=== PATIENT | male | born 1945 | race Caucasian/White ===

== ENCOUNTER → 2021-08-06 11:43 | Outpatient (CLI) | payer MEDICARE, SELFPAY | PROVIDERS: PCP Nurse Practitioner Family; Visit Provider Nurse Practitioner | DX: U07.1 COVID-19 (principal) | CPT/HCPCS: C9803; U0003; U0005 ==

== ENCOUNTER 2021-08-17 11:43 | Emergency (ER) | payer MEDICARE, SELFPAY ==
--- NOTE | 2021-08-17 12:38 | HMH.EDUTC ---
[facility] [place] Disposition Clinical Impression: UTI (urinary tract infection) Qualifiers: Urinary tract infection type: site unspecified Hematuria presence: with hematuria Qualified Code(s): N39.0 - Urinary tract infection, site not specified Disposition: Home, Self-Care Condition on Discharge: Good Instructions: Urinary Tract Infection, DI for Urinary Tract Infection (UTI) Additional Instructions: Drink plenty of fluids. Water would be the best thing to drink. Drinking at least a glass of real cranberry juice per day would also help. Take tylenol or ibuprofen for pain or fever. Take the medications as directed. Follow up with your regular doctor. Make sure you follow up. You should also follow up once your are finished with the antibiotics to get your urine rechecked to make sure the infection is completely gone. GO TO THE ER FOR ANY WORSENING SYMPTOMS Prescriptions: Ondansetron [Zofran 4mg ODT] 4 mg PO Q8HP PRN #20 tab PRN Reason: Nausea [facility] Ciprofloxacin HCl [Cipro 500mg Tab] 500 mg PO BID 10 Days #20 tab Transmission Status: Pending to [facility] Referrals: August Weaver MD [Primary Care Provider] - Time of Disposition: 13:22 Medical Decision Making - Medical Records Medical records reviewed: No: I reviewed the patient's medical records. - Fred Inquiry Pt receiving controlled substance: No Vital Signs: 08/17/21 12:44 08/17/21 13:02 Temperature 97.4 F L 97.4 F L Temperature Source Temporal Artery Scan Pulse Rate 109 H Pulse Rate [Left] 109 H Respiratory Rate 16 16 Blood Pressure 163/99 H Blood Pressure [Right Arm] 163/99 H Blood Pressure Mean [Right Arm] 120 02 Sat by Pulse Oximetry 96 - Lab Data Lab results reviewed: Yes: I reviewed the patient's lab results. Lab Results 08/17/21 12:56: Urine Color [place], Urine Appearance Clear, Urine pH 5.0, Ur Specific Strang < 1.005 L, Urine Protein 1+, Urine Glucose (UA) Trace, Urine Ketones Trace, Urine Blood Negative, Urine Nitrate Positive A, Urine Bilirubin Negative, Urine Urobilinogen 2, Ur Leukocyte Esterase 3+ A Orders (Tests/Meds): ORDERS Category Date Time Status Urine Culture Stat Micro 08/17/21 12:[address] [facility] [place] HPI - General Stated complaint: painful urination, trouble urinating Time Seen by Provider: 08/17/21 12:38 - History of Present Illness Provider Complaint: He states that he has had progressively worsening urinary frequency and dysuria for the past 3 days. This morning his symptoms worsened more, so he came here to be checked for a UTI. He has a history of kidney stones, but he denies any significant pain at this time. He denies any fever or chills. - Related Data Previous Rx's Medication Instructions Recorded Ciprofloxacin HCl [Cipro 500mg 500 mg PO BID 10 Days #20 tab 08/17/21 Tab] Ondansetron [Zofran 4mg ODT] 4 mg PO Q8HP PRN #20 tab 08/17/21 Allergies Allergy/AdvReac Type Severity Reaction Status Date / Time From Penicillin G Sodium Allergy Unknown Uncoded 07/21/17 14:28 PCN (penicillin) Allergy Unknown Uncoded 07/21/17 14:28 Penicillin Allergy Unknown Uncoded 07/21/17 14:28 [facility] History - Hepatitis A Screen Attestation statement:: This patient has been screened for Hepatitis A risk factors. I have reviewed the patient's past medical history: Yes ROS Obtained: Yes All systems reviewed & no additional complaints - Constitutional Constitutional: Reports as per HPI - Eyes Eyes: Denies eye discharge - ENT Ears, Nose, Mouth, and Throat: Denies dizziness, Denies otalgia, Denies sore throat, Denies vertigo/dizziness - Cardiovascular Cardiovascular: Denies chest pain - Respiratory Respiratory: Denies chest congestion, Denies cough, Denies dyspnea, Denies stridor, Denies wheezing - Gastrointestinal Gastrointestingal: Reports: nausea. Denies: abdominal pain, diarrhea, vomiting -
[2021-08-17 12:44] VITALS: BP 163/99; PULSE 109; RESP 16; TEMP 36.3; O2SAT 96; BMI 25.1
[2021-08-17 12:58] LABS: Color,Urine Orange (Yellow)
[2021-08-17 13:00] LABS: Apearance,Urine Clear (Clear); Protein,Urine 1+ (Negative); Specific Gravity, Urine < 1.005 (1.005-1.030)
[2021-08-17 13:01] LABS: Bilirubin,Urine Negative (Negative); Blood, Urine Negative (Negative); Glucose,Urine (UA) Trace (Negative); Ketones,Urine TRACE (Negative); UTC Leukocyte Esterase,Urine 3+ (Negative); UTC Nitrate,Urine Positive (Negative); Urobilinogen,Urine 2 EU/dl (0.2)
[2021-08-17 13:02] VITALS: BP 163/99; PULSE 109; RESP 16; TEMP 36.3
== END 2021-08-17 13:53 | disposition home or self-care (01) ==
PROVIDERS: Emergency Provider Nurse Practitioner Family; PCP Family Medicine
DX: N30.00 Acute cystitis without hematuria (principal); Z88.0 Allergy status to penicillin
CPT/HCPCS: G0463; 81003; 87086; 99202

== ENCOUNTER 2021-08-22 13:15 | Emergency (ER) | payer MEDICARE, SELFPAY ==
[2021-08-22 15:13] VITALS: BP 154/84; PULSE 81; RESP 16; TEMP 36.6; O2SAT 100; BMI 24.3
--- NOTE | 2021-08-22 15:42 | HMH.EDUTC ---
[facility] [place] Clinical Impression: UTI (urinary tract infection) Qualifiers: Urinary tract infection type: site unspecified Hematuria presence: with hematuria Qualified Code(s): N39.0 - Urinary tract infection, site not specified; R31.9 - Hematuria, unspecified Adverse reaction to antithrombotic medication Qualifiers: Encounter type: initial encounter Qualified Code(s): T45.525A - Adverse effect of antithrombotic drugs, initial encounter Disposition: Home, Self-Care Condition on Discharge: Good Instructions: DI for Urinary Tract Infection (UTI) Additional Instructions: Drink plenty of fluids. Take tylenol or ibuprofen for pain or fever. Stop the ciprofloxacin and start the bactrim (sulfamethazole). Take the medications as directed. Follow up with your regular doctor. GO TO THE ER FOR ANY WORSENING SYMPTOMS Prescriptions: Sulfamethoxazole/Trimethoprim [Bactrim DS tablet] 1 each PO BID 7 Days #14 tab Transmission Status: Pending to [facility] Referrals: August Weaver MD [Primary Care Provider] - Time of Disposition: 15:59 Medical Decision Making - Medical Records Medical records reviewed: No: I reviewed the patient's medical records. - Fred Inquiry Pt receiving controlled substance: No Vital Signs: 08/22/21 15:13 Temperature 97.9 F Temperature Source Oral Pulse Rate [Left] 81 Respiratory Rate 16 Blood Pressure [Right Arm] 154/84 H Blood Pressure Mean [Right Arm] 107 02 Sat by Pulse Oximetry 100 [facility] [place] - General Stated complaint: stomach pain Time Seen by Provider: 08/22/21 15:42 Mode of Arrival: Ambulatory Source of Information: Patient Limitations: No Limitations Description of Symptoms (Recalled from Triage Doc. by RN): PT WAS TREATED HERE ON 04/18 FOR A UTI. AFTER STARTING THE ZOFRAN AND CIPRO PT DEVELOPED WORSE SYMPTOMS. PT STATES HE IS UNABLE TO EAT/DRINK, ABD IS TENDER AND DISTENDED, AND N/V. HEENT Symptoms (Recalled from RN notes): No Resp Symptoms (Recalled from RN notes): No Skin Symptoms (Recalled from RN notes): No MS Symptoms (Recalled from RN notes): No Functional Status (Recalled from RN notes): WNL - History of Present Illness Provider Complaint: He was here 4 days ago with symptoms of a probable uti. He was started on cipro. He states that after starting that, his uti symptoms began to bet better, but he began to have GI upset. He has vomited after taking the cipro twice 2 days ago and then he vomited after taking it yesterday also. He has stopped the cipro and his GI issues are feeling better, but he is worried that he needs to be on an antibotic for the UTI symptoms that he was having. - Related Data Previous Rx's Medication Instructions Recorded Ciprofloxacin HCl [Cipro 500mg 500 mg PO BID 10 Days #20 tab 08/17/21 Tab] Ondansetron [Zofran 4mg ODT] 4 mg PO Q8HP PRN #20 tab 08/17/21 Sulfamethoxazole/Trimethoprim 1 each PO BID 7 Days #14 tab 08/22/21 [Bactrim DS tablet] Allergies Allergy/AdvReac Type Severity Reaction Status Date / Time From Penicillin G Sodium Allergy Unknown Uncoded 07/21/17 14:28 PCN (penicillin) Allergy Unknown Uncoded 07/21/17 14:28 Penicillin Allergy Unknown Uncoded 07/21/17 14:28 - Worker's Comp Is this a Worker's Comp case?: No [facility] History - Hepatitis A Screen Drug use history?: No High risk sexual behaviors?: No History of sexually transmitted infection?: No Currently employed?: No Childcare worker?: No Do you have indoor plumbing?: Yes Do you have electricity?: Yes Attestation statement:: This patient has been screened for Hepatitis A risk factors. I have reviewed the patient's past medical history: Yes ROS Obtained: Yes All systems reviewed & no additional complaints - Constitutional Constitutional: Reports as per HPI - Eyes Eyes: Denies eye discharge - ENT Ears, Nose, Mouth, and Throat: Denies dizziness, Denies otalgia, Denies sore throat, Denies throat swelling -
[2021-08-22 16:08] VITALS: BP 154/84; PULSE 81; RESP 16; TEMP 36.6
== END 2021-08-22 16:13 | disposition home or self-care (01) ==
PROVIDERS: Emergency Provider Nurse Practitioner Family; PCP Family Medicine
DX: N30.01 Acute cystitis with hematuria (principal); T36.8X5A Adverse effect of other systemic antibiotics, initial encounter; Z88.0 Allergy status to penicillin
CPT/HCPCS: G0463; 99202

== ENCOUNTER 2021-08-27 22:35 | Observation (INO) | payer MEDICARE, SELFPAY ==
[2021-08-27 22:38] VITALS: BMI 25.1
[2021-08-27 22:49] VITALS: BP 110/67; PULSE 66; RESP 20; TEMP 36.9; O2SAT 97; BMI 25.8
[2021-08-27 23:00] VITALS: BP 170/76; PULSE 64; O2SAT 98
--- NOTE | 2021-08-27 23:02 | CT_ITS ---
PROCEDURE INFORMATION: Exam: CT Abdomen And Pelvis Without Contrast Exam date and time: 08/27/2021 11:02 PM Age: 76 years old Clinical indication: Abdominal pain; Generalized; Additional info: Abdominal pain x2 weeks TECHNIQUE: Imaging protocol: Computed tomography of the abdomen and pelvis without contrast. Radiation optimization: All CT scans at this facility use at least one of these dose optimization techniques: automated exposure control; mA and/or kV adjustment per patient size (includes targeted exams where dose is matched to clinical indication); or iterative reconstruction. COMPARISON: No relevant prior studies available. FINDINGS: Lungs: No mass/infiltrate at either lung base. Moderate to large left basilar pleural effusion identified. Liver: The liver is normal in size and attenuation. No intrahepatic biliary dilitation. Gallbladder and bile ducts: Normal. No calcified stones. No ductal dilation. Gallbladder wall thickness is normal. Pancreas: Normal. No ductal dilation. Spleen: Normal. No splenomegaly. Adrenal glands: Normal. No mass. Kidneys and ureters: Moderate bilateral hydronephrosis with moderate bilateral hydroureter. There is infiltration of fat within each perinephric space. This is likely on the basis of forniceal extravasation of urine due to bilateral obstructive uropathy. Mild thickening of left Gerota's fascia. No evidence of obstructing calculus bilaterally. Stomach and bowel: There is diverticulosis within portions of the colon without evidence of diverticulitis.No obstruction. No mucosal thickening. Small bowel mesentery is normal. Appendix: Unremarkable. Intraperitoneal space: Unremarkable. No free air. No significant fluid collection. Vasculature: Arterial atheromatous calcifications are noted. No abdominal aortic aneurysm. Lymph nodes: Unremarkable. No enlarged lymph nodes. Urinary bladder: Prominent bladder distention. The bladder measures 17.1 x 9.6 x 9.2 cm. Estimated current bladder volume is 790 mL. No evidence of mural thickening of the lateral wall. No evidence of focal mass. Reproductive: Prostatic enlargement. The bladder measures 5.7 x 6.0 x 5.8 cm with estimated volume of 103 mL, (normal is 40 mL or less). Bones/joints: There are degenerative changes noted within the lumbar spine. No acute fracture. Soft tissues: Unremarkable. IMPRESSION: 1. Bilateral hydroureteronephrosis with bladder enlargement secondary to prostatic enlargement. Secondary effects within the perinephric spaces likely secondary to forniceal extravasation associated with chronic bladder outlet obstruction. 2. Moderate to large left basilar pleural effusion, etiology indeterminate. 3. Colonic diverticulosis without evidence of diverticulitis.
[2021-08-27 23:06] LABS: Basophils # 0.1 K/mm3 (0-0.2); Basophils % 0.4 % (0.1-2.0); Eosinophils % 0.4 % (0.1-12.0); Hematocrit 37.7 % (42.0-52.0); Hemoglobin 11.8 g/dL (14.1-18.0); Lymphocytes # 0.5 K/mm3 (0.7-4.5); Lymphocytes % 4.8 % (10-50); Mean Corpuscular HGB Conc 31.4 g/dL (31.8-35.4); Mean Corpuscular Hemoglobin 30.4 pg (27.0-31.2); Mean Corpuscular Volume 96.8 fl (80-94); Mean Platelet Volume 8.9 fl (7.4-10.4); Monocytes # 0.6 K/mm3 (0.1-1.0); Monocytes % 5.2 % (1.7-9.3); Neutrophils # 9.8 K/mm3 (1.8-7.8); Neutrophils % 89.2 % (37.0-80.0); Platelet Count 368 K/mm3 (142-424); Red Cell Distribution Width 13.7 % (11.5-17.5)
[2021-08-27 23:08] LABS: MANUAL DIFFERENTIAL MANUAL DIFFERENTIAL (MANUAL DIFF)
[2021-08-27 23:20] LABS: Alanine Aminotransferase 17 U/L (12-78); Albumin/Globulin Ratio 1.4 (1.1-1.8); Alkaline Phosphatase 96 U/L (38-126); Anion Gap 34.9 mEq/L (5-15); Aspartate Amino Transferase 23 U/L (17-59); Bilirubin,Total 0.6 mg/dl (0.2-1.3); Calcium 9.7 mg/dl (8.4-10.2); Chloride 94 mmol/L (98-107); Globulin 2.9 g/dL (1.3-3.2); Glucose 109 mg/dl (74-100); Sodium 132 mmol/L (136-145); Total Protein,Serum 6.9 g/dl (6.3-8.2)
[2021-08-27 23:22] LABS: Lymphocytes % 3 % (10-50); Monocytes % 6 % (2-9); Neutrophils % 91 % (42-76); Platelet Estimate Normal; RBC Morphology Normal; Total Cells Counted 100
[2021-08-27 23:25] LABS: C-Reactive Protein 111.1 mg/L (0-4)
[2021-08-27 23:26] LABS: Carbon Dioxide 10 mmol/L (22.0-30.0); Potassium 6.9 mmoL/L (3.5-5.1)
--- NOTE | 2021-08-27 23:26 | PC.NURSE ---
critical labs called by Lamont in lab pot 6.9 co2 10
[2021-08-27 23:27] LABS: Creatinine Clearance Estimated 3 mL/min (50-200); Estimated Glomerular Filt Rate 2 ml/min (>60); GFR (African American) 2 ML/MIN (>60)
[2021-08-27 23:28] LABS: Blood Urea Nitrogen 180 mg/dl (9-20)
--- NOTE | 2021-08-27 23:28 | PC.NURSE ---
more criticals called Bun 180 crea 23.3
[2021-08-27 23:30] VITALS: BP 151/77
[2021-08-27 23:32] LABS: Erythrocyte Sedimentation Rate 96 mm/hr (0-20)
[2021-08-27 23:39] LABS: Procalcitonin 0.256 ng/mL (0.0-2.0)
[2021-08-28] VITALS (23 sets, daily range): BP systolic 133–168; BP diastolic 7–94; PULSE 66–86; RESP 14–18; TEMP 35.5–36.9; O2SAT 95–99; BMI 24.2
--- NOTE | 2021-08-28 00:01 | XR_ITS ---
PROCEDURE INFORMATION: Exam: XR Chest Exam date and time: 08/28/2021 12:01 AM Age: 76 years old Clinical indication: Shortness of breath; Additional info: Potential transfer TECHNIQUE: Imaging protocol: XR of the chest. Views: 2 views. COMPARISON: CT ABDOMEN PELVIS WO CON 08/27/2021 11:44 PM FINDINGS: Lungs: Unremarkable. No consolidation. No evidence of pulmonary vascular congestion. Pleural spaces: There is blunting of the left posterior costophrenic angle compatible with left basilar pleural effusion. Right costophrenic angle is normal. No evidence of pneumothorax. Heart/Mediastinum: No cardiomegaly. Tortuosity of the thoracic aorta. Bones/joints: Degenerative changes of the thoracic spine and left acromioclavicular joint. No occult fracture. IMPRESSION: Left basilar pleural effusion. No evidence of alveolar consolidation or congestive failure.
--- NOTE | 2021-08-28 00:02 | ECG_ITS ---
APPROVED REPORT Exam: Resting ECG HR:61 bpm ECG Measurements Heart Rate 61 AXES MN 189 P 47 QRSd 105 QRS 2 QT 431 T 58 QTc 435 Conclusion SINUS RHYTHM WITH SINUS ARRHYTHMIA NORMAL ECG UNCONFIRMED REPORT Electronically signed by : August Phelps MD 09/02/2021 17:36:15
[2021-08-28 00:12] LABS: Coronavirus 19, PCR Not Detected (NotDetected); Influenza A, PCR Not Detected (NotDetected); Influenza B, PCR Not Detected (NotDetected)
[2021-08-28 00:24] LABS: Microscopic, Urine URINE MICROSCOPIC (MICROSCOPIC)
[2021-08-28 00:28] LABS: Appearance,Urine CLEAR (Clear); Bilirubin,Urine Negative (Negative); Blood, Urine 2+ (Negative); Color,Urine YELLOW (Yellow); Glucose,Urine (UA) TRACE (Negative); Ketones,Urine Negative (Negative); Leukocyte Esterase,Urine 2+ (Negative); Nitrate,Urine POSITIVE (Negative); Protein,Urine TRACE (Negative)
[2021-08-28 00:40] LABS: Bacteria,Urine 2+ /lpf; WBC,Urine 20-50 #/hpf (0-3)
--- NOTE | 2021-08-28 00:56 | HMH.EDWEAK ---
ED Disposition Clinical Impression: Obstructive uropathy, Hyperkalemia Acute renal failure (ARF) Qualifiers: Acute renal failure type: unspecified Qualified Code(s): N17.9 - Acute kidney failure, unspecified Disposition: Admitted As Inpatient Condition on Discharge: Serious Referrals: Kamila Michael APRN [Primary Care Provider] - - Critical Care Critical Care Time: No Attestation: On 08/27/21, the high probability of a clinically significant, sudden or life threatening deterioration of the following system(s) required my full and direct attention, intervention and personal management. The time I documented below is in addition to time spent performing reported procedures but includes the following listed in this critical care notation. Medical Decision Making - Medical Records Medical records reviewed: Yes: I reviewed the patient's medical records. - Fred Inquiry Pt receiving controlled substance: No Vital Signs: 08/27/21 22:49 08/27/21 23:00 08/27/21 23:30 Temperature 98.4 F Temperature Source Oral Pulse Rate 64 Pulse Rate [Apical] 66 Respiratory Rate 20 Blood Pressure 170/76 H 151/77 H Blood Pressure [Right Arm] 110/67 Blood Pressure Mean [Right Arm] 81 Blood Pressure Source Automatic Cuff Blood Pressure Source [Right Arm] Automatic Cuff Blood Pressure Position Sitting Blood Pressure Position [Right Arm] Sitting 02 Sat by Pulse Oximetry 97 98 Oxygen Delivery Method Room Air Room Air 08/28/21 00:00 08/28/21 01:00 08/28/21 02:00 Temperature Temperature Source Pulse Rate 66 83 73 Pulse Rate [Apical] Respiratory Rate 14 Blood Pressure 141/93 H 159/7 H 149/69 H Blood Pressure [Right Arm] Blood Pressure Mean [Right Arm] Blood Pressure Source Automatic Cuff Automatic Cuff Blood Pressure Source [Right Arm] Blood Pressure Position Sitting Sitting Blood Pressure Position [Right Arm] 02 Sat by Pulse Oximetry 96 98 Oxygen Delivery Method Room Air Room Air 08/28/21 03:00 08/28/21 04:00 08/28/21 05:00 Temperature Temperature Source Pulse Rate 70 72 76 Pulse Rate [Apical] Respiratory Rate Blood Pressure 138/69 133/63 139/76 Blood Pressure [Right Arm] Blood Pressure Mean [Right Arm] Blood Pressure Source Automatic Cuff Automatic Cuff Automatic Cuff Blood Pressure Source [Right Arm] Blood Pressure Position Sitting Sitting Sitting Blood Pressure Position [Right Arm] 02 Sat by Pulse Oximetry 98 95 99 Oxygen Delivery Method Room Air Room Air 08/28/21 06:30 08/28/21 07:39 Temperature Temperature Source Pulse Rate 74 68 Pulse Rate [Apical] Respiratory Rate Blood Pressure 161/86 H 162/84 H Blood Pressure [Right Arm] Blood Pressure Mean [Right Arm] Blood Pressure Source Automatic Cuff Automatic Cuff Blood Pressure Source [Right Arm] Blood Pressure Position Sitting Sitting Blood Pressure Position [Right Arm] 02 Sat by Pulse Oximetry 97 97 Oxygen Delivery Method Room Air Room Air - Lab Data Lab results reviewed: Yes: I reviewed the patient's lab results. Lab Results 08/27/21 22:43: WBC 11.0 H, RBC 3.90 L, Hgb 11.8 L, Hct 37.7 L, MCV 96.8 H, MCH 30.4, MCHC 31.4 L, RDW 13.7, Plt Count 368, MPV 8.9, Neut % (Auto) 89.2 H, Lymph % (Auto) 4.8 L, [place] % (Auto) 5.2, Eos % (Auto) 0.4, Baso % (Auto) 0.4, Neut # (Auto) 9.8 H, Lymph # (Auto) 0.5 L, [place] # (Auto) 0.6, Eos # (Auto) 0.0, Baso # (Auto) 0.1, Total Counted 100, Neutrophils % (Manual) 91 H, Lymphocytes % (Manual) 3 L, Monocytes % (Manual) 6, Platelet Estimate Normal, RBC Morphology Normal, ESR 96 H 08/27/21 22:43: Sodium 132 L, Potassium 6.9 H*, Chloride 94 L, Carbon Dioxide 10 L, Anion Gap 34.9 H, BUN 180 H*, Creatinine 23.30 H, Estimated Creat Clear 3, Estimated GFR 2 L*, Est GFR ( Amer) 2 L*, Glucose 109 H, Calcium 9.7, Total Bilirubin 0.6, AST 23, ALT 17, Alkaline Phosphatase 96, C-Reactive Protein 111.1 H, Total Protein 6.9, Albumin 4.0, Globuli
--- NOTE | 2021-08-28 01:11 | PC.NURSE ---
MD Damaris calling [facility] at this time.
--- NOTE | 2021-08-28 01:21 | PC.NURSE ---
[facility] has also declined pt as well.
--- NOTE | 2021-08-28 01:27 | PC.NURSE ---
Fiorella speaking to about possible transfer.
--- NOTE | 2021-08-28 01:30 | PC.NURSE ---
[facility] has no beds available
--- NOTE | 2021-08-28 01:39 | PC.NURSE ---
Pt accepted by Urology at [facility]. Awaiting a call back from hospitalist.
--- NOTE | 2021-08-28 01:58 | PC.NURSE ---
JUANIS MARROQUIN speaking with Dr. Colindres at [place]
--- NOTE | 2021-08-28 02:01 | PC.NURSE ---
Pt accepted by Nephrology but may take a couple days for a bed
--- NOTE | 2021-08-28 02:17 | PC.NURSE ---
[facility] has placed pt on a waiting list.
--- NOTE | 2021-08-28 02:32 | PC.NURSE ---
Addendum entered by Bartolo Call RN 08/28/21 02:44: [facility] declined pt d/t diversion. Original Note: [facility] says they will speak with capacity physician about possible transfer. They said they are currently on divert but will see if physician is able.
[2021-08-28 03:10] LABS: Chloride 101 mmol/L (98-107); Sodium 134 mmol/L (136-145)
[2021-08-28 03:13] LABS: Anion Gap 27.1 mEq/L (5-15); Carbon Dioxide 12 mmol/L (22.0-30.0)
[2021-08-28 03:14] LABS: Glucose 126 mg/dl (74-100)
[2021-08-28 03:24] LABS: Creatinine Clearance Estimated 4 mL/min (50-200); Estimated Glomerular Filt Rate 3 ml/min (>60); GFR (African American) 3 ML/MIN (>60)
[2021-08-28 03:25] LABS: Potassium 6.1 mmoL/L (3.5-5.1)
[2021-08-28 03:26] LABS: Blood Urea Nitrogen 154 mg/dl (9-20)
[2021-08-28 06:21] LABS: Anion Gap 21.3 mEq/L (5-15); Calcium 9.9 mg/dl (8.4-10.2); Carbon Dioxide 14 mmol/L (22.0-30.0); Chloride 109 mmol/L (98-107); Creatinine Clearance Estimated 5 mL/min (50-200); Estimated Glomerular Filt Rate 4 ml/min (>60); GFR (African American) 4 ML/MIN (>60); Glucose 119 mg/dl (74-100); Potassium 5.3 mmoL/L (3.5-5.1); Sodium 139 mmol/L (136-145)
[2021-08-28 06:41] LABS: Blood Urea Nitrogen 138 mg/dl (9-20)
--- NOTE | 2021-08-28 06:59 | PC.NURSE ---
pt had large bowel movement
--- NOTE | 2021-08-28 07:00 | PC.NURSE ---
LARGE BOWEL MOVEMENT NOTED.
--- NOTE | 2021-08-28 07:15 | PC.NURSE ---
ER MD (Damaris) in room reassessing pt, noticed pt urine in catheter bag is now blood tinged , per housekeeper/laundry assistant staff this is new to pt. ER MD states to bolus pt IV fluids NS 500 mL per IV. Pt had IV fluids has NS hanging at 100 mL/hr currently approx 500 mL left in bag, opened fluids up to wide open rate. will continue to monitor
--- NOTE | 2021-08-28 07:30 | PC.NURSE ---
JUANIS RICHMOND spoke with Dr. Weaver-agreeable to admit pt.
--- NOTE | 2021-08-28 07:59 | PC.NURSE ---
notified care management of admission, spoke with karly. pt will be boarding in ER until a bed is available for pt
--- NOTE | 2021-08-28 09:08 | PC.NURSE ---
pt urine continues to be blood tinged in appearance in catheter tubing, pt has had approx 300 mL out since last checked on pt, will continue to monitor
--- NOTE | 2021-08-28 10:39 | PC.NURSE ---
[facility] called for update
--- NOTE | 2021-08-28 11:58 | PC.NURSE ---
pt sleeping will continue to monitor
--- NOTE | 2021-08-28 12:12 | PC.NURSE ---
received verbal order from Dr. Weaver for pt to have a regular diet. will offer lunch tray to pt when he wakes up.
[2021-08-28 13:41] LABS: Anion Gap 16.5 mEq/L (5-15); Calcium 9.7 mg/dl (8.4-10.2); Carbon Dioxide 20 mmol/L (22.0-30.0); Chloride 113 mmol/L (98-107); Creatinine Clearance Estimated 9 mL/min (50-200); Estimated Glomerular Filt Rate 7 ml/min (>60); GFR (African American) 8 ML/MIN (>60); Glucose 107 mg/dl (74-100); Potassium 5.5 mmoL/L (3.5-5.1); Sodium 144 mmol/L (136-145)
--- NOTE | 2021-08-28 13:42 | PC.NURSE ---
pt sitting up in bed eating lunch tray at this time.
[2021-08-28 13:44] LABS: Blood Urea Nitrogen 91 mg/dl (9-20)
--- NOTE | 2021-08-28 13:46 | PC.NURSE ---
critical results received from lab; creatinine and BUN will call critical results to Dr. Weaver
--- NOTE | 2021-08-28 13:51 | PC.NURSE ---
notified dr. paz of critical bun and creatinine also notified him of 2500 mL of urine emptied from f/c that is blood tinged (dr. soler had notified him of pts change in urine) no new orders obtained, will continue to monitor.
--- NOTE | 2021-08-28 13:55 | PC.NURSE ---
contacted warehouse selector to check on bed status, states waiting on rooms to be cleaned
--- NOTE | 2021-08-28 14:02 | HMH.PHAVTE ---
[facility] VTE Monitoring - Patient Demographics Admission date: 08/28/21 Report Date: 08/28/21 Time: 14:03 Allergies/Adverse Reactions: Patient Allergies From Penicillin G Sodium Allergy (Unknown, Uncoded 07/21/17 14:28) PCN (penicillin) Allergy (Unknown, Uncoded 07/21/17 14:28) Penicillin Allergy (Unknown, Uncoded 07/21/17 14:28) Height: 1.75 m Weight: 79.379 kg Patient Problems: Current Active Problems Acute renal failure (ARF) (Acute) Obstructive uropathy (Acute) Hyperkalemia (Acute) - VTE Risk Labs: VTE Related Lab Results Hgb 11.8 g/dL (14.1-18.0) L 08/27/21 22:43 Hct 37.7 % (42.0-52.0) L 08/27/21 22:43 Plt Count 368 K/mm3 (142-424) 08/27/21 22:43 BUN 91 mg/dl (9-20) H D 08/28/21 13:10 Creatinine 8.10 mg/dl (0.66-1.25) H D 08/28/21 13:10 Estimated Creat Clear 9 mL/min (50-200) 08/28/21 13:10 Clinical Trial Participant: No - Prophylaxis VTE Prophylaxis Ordered?: Yes Types of VTE Prophylaxis: TEDS Knee High
--- NOTE | 2021-08-28 14:22 | PC.NURSE ---
1420 Report received from Ritika Deutsch RN
--- NOTE | 2021-08-28 14:22 | PC.NURSE ---
report called to franchesca young at this time
[2021-08-28 15:35] LABS: Anion Gap 18.1 mEq/L (5-15); Calcium 9.4 mg/dl (8.4-10.2); Carbon Dioxide 19 mmol/L (22.0-30.0); Chloride 111 mmol/L (98-107); Creatinine Clearance Estimated 9 mL/min (50-200); Estimated Glomerular Filt Rate 7 ml/min (>60); GFR (African American) 9 ML/MIN (>60); Glucose 147 mg/dl (74-100); Potassium 5.1 mmoL/L (3.5-5.1); Sodium 143 mmol/L (136-145)
[2021-08-28 15:38] LABS: Blood Urea Nitrogen 83 mg/dl (9-20)
--- NOTE | 2021-08-28 16:51 | HMH.HP ---
*Admission Date: 08/28/21 *Chief complaint: Abdominal swelling *History of present illness: 76-year-old male presented to the emergency department overnight with abdominal swelling present for the last 7 to 8 days with associated decrease in urination with small volume voids. On August 17 patient was seen in the urgent treatment clinic and diagnosed with a urinary tract infection. Patient was given Bactrim. Within 48 hours he developed abdominal bloating. Patient returned to the urgent treatment clinic and was given Cipro. Patient did have abnormal urinalysis but urine culture ultimately showed no bacterial growth. Patient's abdominal discomfort persisted. Patient did not establish care with local physician and saw a physician in [place]. Labs were performed which showed elevated creatinine and the patient was contacted yesterday evening and instructed to go to the hospital. Patient presented to our facility and was found to have acute kidney injury with a creatinine of 23, BUN greater than 150, and a CT scan that showed bladder distention, ureteral swelling and hydronephrosis. Hill catheter was placed in the patient which produced 6 L of urine. Patient has since had an additional 2-1/2 L of urine output with now urine that is blood-tinged. Over the last 10 days he denies fevers or chills. Patient denies flank pain. He claims to have a history of an enlarged prostate which was confirmed on his CT scan. He does not recall any history of urinary difficulties [facility] History I have reviewed the patient's past medical history: Yes *Have you ever received a pneumonia vaccine?: No *Have you received a flu vaccine this season?: No - *Social History Smoking Status: Never smoker Alcohol Intake: never *Occupational Status:: retired *Travel in the last 8 weeks: None Family Hx:: No significant family history Review of Systems - Review of Systems Review of systems:: pertinent systems reviewed and negative unless documented below - *Neurologic Reports weakness, Denies headache(s), Denies seizure-like activity Meds Allergies Allergy/AdvReac Type Severity Reaction Status Date / Time Penicillins Allergy Unknown Unknown Verified 08/28/21 14:30 allergy reaction Exam Vital signs and Labs for Last 24 Hours: Temp Pulse Resp BP Pulse Ox 97.8 F 79 18 161/75 H 97 08/28/21 15:03 08/28/21 15:03 08/28/21 15:03 08/28/21 15:03 08/28/21 15:03 Laboratory Results - last 24 hr 08/27/21 22:43: WBC 11.0 H, RBC 3.90 L, Hgb 11.8 L, Hct 37.7 L, MCV 96.8 H, MCH 30.4, MCHC 31.4 L, RDW 13.7, Plt Count 368, MPV 8.9, Neut % (Auto) 89.2 H, Lymph % (Auto) 4.8 L, [place] % (Auto) 5.2, Eos % (Auto) 0.4, Baso % (Auto) 0.4, Neut # (Auto) 9.8 H, Lymph # (Auto) 0.5 L, [place] # (Auto) 0.6, Eos # (Auto) 0.0, Baso # (Auto) 0.1, Total Counted 100, Neutrophils % (Manual) 91 H, Lymphocytes % (Manual) 3 L, Monocytes % (Manual) 6, Platelet Estimate Normal, RBC Morphology Normal, ESR 96 H 08/27/21 22:43: Sodium 132 L, Potassium 6.9 H*, Chloride 94 L, Carbon Dioxide 10 L, Anion Gap 34.9 H, BUN 180 H*, Creatinine 23.30 H, Estimated Creat Clear 3, Estimated GFR 2 L*, Est GFR ( Amer) 2 L*, Glucose 109 H, Calcium 9.7, Total Bilirubin 0.6, AST 23, ALT 17, Alkaline Phosphatase 96, C-Reactive Protein 111.1 H, Total Protein 6.9, Albumin 4.0, Globulin 2.9, Albumin/Globulin Ratio 1.4, Procalcitonin 0.256 08/27/21 23:55: Urine Color Yellow, Urine Appearance Clear, Urine pH 5.0, Ur Specific [place] 1.010, Urine Protein Trace, Urine Glucose (UA) Trace, Urine Ketones Negative, Urine Blood 2+, Urine Nitrate Positive, Urine Bilirubin Negative, Urine Urobilinogen 1.0, Ur Leukocyte Esterase 2+ A, Urine RBC 10-20, Urine WBC 20-50, Urine Bacteria 2+ 08/28/21 00:00: SARS-CoV-2 (PCR) Not detected, Influenza A Untype (PCR) Not detected, Influenza Type B (PCR) Not detected 08/28/21 02:50: Sodium 134 L, Potassium 6.1 H*, Chloride 101, Carbon Dioxide 12 L, Anion Gap 27.1 H, BUN 154 H*, Creat
[2021-08-29 04:00] VITALS: BP 152/76; PULSE 87; RESP 17; TEMP 36.9; O2SAT 97
[2021-08-29 05:01] VITALS: BMI 24.0
[2021-08-29 05:04] VITALS: BMI 24.0
[2021-08-29 06:42] LABS: Basophils # 0.1 K/mm3 (0-0.2); Basophils % 0.6 % (0.1-2.0); Eosinophils # 0.1 K/mm3 (0.0-0.4); Eosinophils % 1.6 % (0.1-12.0); Hemoglobin 11.5 g/dL (14.1-18.0); Lymphocytes # 0.7 K/mm3 (0.7-4.5); Lymphocytes % 8.4 % (10-50); Mean Corpuscular HGB Conc 31.9 g/dL (31.8-35.4); Mean Corpuscular Hemoglobin 30.3 pg (27.0-31.2); Monocytes # 0.7 K/mm3 (0.1-1.0); Monocytes % 7.6 % (1.7-9.3); Neutrophils # 7.1 K/mm3 (1.8-7.8); Neutrophils % 81.9 % (37.0-80.0); Platelet Count 338 K/mm3 (142-424); Red Blood Count 3.79 M/mm3 (4.60-6.20); Red Cell Distribution Width 13.7 % (11.5-17.5); White Blood Count 8.7 K/mm3 (4.8-10.8)
[2021-08-29 07:15] LABS: Anion Gap 16.9 mEq/L (5-15); Blood Urea Nitrogen 36 mg/dl (9-20); Calcium 9.3 mg/dl (8.4-10.2); Carbon Dioxide 19 mmol/L (22.0-30.0); Chloride 116 mmol/L (98-107); Creatinine Clearance Estimated 32 mL/min (50-200); Estimated Glomerular Filt Rate 31 ml/min (>60); GFR (African American) 38 ML/MIN (>60); Glucose 112 mg/dl (74-100); Magnesium 2.2 mg/dl (1.6-2.3); Potassium 4.9 mmoL/L (3.5-5.1); Sodium 147 mmol/L (136-145)
--- NOTE | 2021-08-29 07:35 | HMH.ACPN2 ---
Internal Medicine - PN: Subj *Date: 08/29/21 *Time: 07:35 Interval history: Patient complains of weakness this morning. He has been out of bed once. No acute events overnight. Patient has blood-tinged urine in his catheter tubing with tea colored blood in his Hill bag Exam Vital signs and Labs for Last 24 Hours: Temp Pulse Resp BP Pulse Ox 98.5 F 87 17 152/76 H 97 08/29/21 04:00 08/29/21 04:00 08/29/21 04:00 08/29/21 04:00 08/29/21 04:00 Laboratory Results - last 24 hr 08/28/21 13:10: Sodium 144, Potassium 5.5 H, Chloride 113 H, Carbon Dioxide 20 L, Anion Gap 16.5 H, BUN 91 H D, Creatinine 8.10 H D, Estimated Creat Clear 9, Estimated GFR 7 L*, Est GFR ( Amer) 8 L* D, Glucose 107 H, Calcium 9.7 08/28/21 15:09: Sodium 143, Potassium 5.1, Chloride 111 H, Carbon Dioxide 19 L, Anion Gap 18.1 H, BUN 83 H, Creatinine 7.40 H, Estimated Creat Clear 9, Estimated GFR 7 L*, Est GFR ( Amer) 9 L*, Glucose 147 H D, Calcium 9.4 08/29/21 06:07: WBC 8.7, RBC 3.79 L, Hgb 11.5 L, Hct 36.0 L, MCV 95.0 H, MCH 30.3, MCHC 31.9, RDW 13.7, Plt Count 338, MPV 8.0, Neut % (Auto) 81.9 H, Lymph % (Auto) 8.4 L, [place] % (Auto) 7.6, Eos % (Auto) 1.6, Baso % (Auto) 0.6, Neut # (Auto) 7.1, Lymph # (Auto) 0.7, [place] # (Auto) 0.7, Eos # (Auto) 0.1, Baso # (Auto) 0.1 08/29/21 06:07: Sodium 147 H, Potassium 4.9, Chloride 116 H, Carbon Dioxide 19 L, Anion Gap 16.9 H, BUN 36 H D, Creatinine 2.10 H D, Estimated Creat Clear 32, Estimated GFR 31 L, Est GFR ( Amer) 38 L D, Glucose 112 H D, Calcium 9.3, Magnesium 2.2 I & O for Last 24 hours: Intake & Output 08/26/21 08/27/21 08/28/21 08/29/21 11:59 11:59 11:59 11:59 Intake Total 120 / 120 Output Total 6000 / 6000 4450 / 4450 Balance -6000 / -6000 -4330 / -4330 Weight 175 lb 162 lb 7 oz Microbiology Reports for the Last 24 Hours: Microbiology 08/27/21 23:55 Urine,Clean Catch Urine Culture - Preliminary NO GROWTH AFTER 24 HOURS Narrative: Patient appears comfortable and in no distress. Lungs are clear. Heart has a regular rate and rhythm. Abdomen is soft and nontender. Hill catheter is in place Creatinine has decreased to 2.1 with BUN of 36. Potassium is 4.9 Urine culture shows no growth after 24 hours Assessment and Plan (1) Acute kidney injury Status: Acute Category: Medical Code(s): N17.9 - Acute kidney failure, unspecified (2) Hyperkalemia Status: Resolved Category: Medical Code(s): E87.5 - Hyperkalemia (3) Obstructive uropathy Status: Acute Category: Medical Code(s): N13.9 - Obstructive and reflux uropathy, unspecified (4) UTI (urinary tract infection) Status: Suspected Category: Medical Code(s): N39.0 - Urinary tract infection, site not specified - Assessment and plan all Dx Assessment and Plan for all problems:: 1. Renal function is improving. Await urology evaluation today for patient's postobstructive uropathy 2. PT eval today due to patient weakness 3. At discharge patient will require Hill catheter.
--- NOTE | 2021-08-29 07:41 | HMH.PHAINT ---
MEDICATION RECONCILIATION COMPLETED ON PATIENT USING EXTERNAL FILL HISTORY FROM PHARMACY. -IGNACIA BRANDT, ZAHEERD
[2021-08-29 08:00] VITALS: BP 140/70; PULSE 83; RESP 18; TEMP 36.8; O2SAT 97
--- NOTE | 2021-08-29 08:28 | HMH.PTEV ---
Physical Therapy Evaluation Rehab PT IP Evaluation Start: 08/29/21 07:09 Freq: ONCE Status: Active Protocol: Document 08/29/21 08:26 CINDY (Rec: 08/29/21 08:28 CINDY [id number]) Subjective/History History History 76 yowm adm to [facility] with general weakness due to VIRGEN and possible UTI. He reports he lives with spouse, 1 step to enter the home and is generally independent with all activity without AD. Subjective Subjective He reports feeling weak still this am, but no c/o pain. Rehab PT IP Eval Objective Appearance Patient Behavior Appropriate Patient Orientation Person,Place,Time Difficulty following instructions none Speech Pattern Clear Ambulation Patient Able to Ambulate Yes Ambulation Observation Ambulation Distance (feet) 30 Ambulation Assistive Device None Ambulation Ability Supervision/Stand by Balance Ability to Arise Able, uses arms to help Sitting Balance Steady, safe Standing Balance Steady, wide stance Dynamic Sitting Balance Ability Good Dynamic Standing Balance Ability Good Transfers Bed Transfer Ability Supervision/Stand by Chair Transfer Ability Supervision/Stand by Sit to Stand Bed Transfer Ability Supervision/Stand by Sit to Stand Chair Transfer Ability Supervision/Stand by ROM All Extremities PT ROM Status WFL MMT All Extremities PT MMT WFL Rehab PT IP prob,goals,plan Problems Date of Evaluation: 08/29/21 Discharge Plan PT Discharge Plan Pt appears to be at baseline for all mobility at this time and is appropriate to return home once medically stable. No current inpatient therapy needs. G -code Required No Eval Complexity Eval Charge Codes 16214 - Moderate Complexity PHYSICIAN CERTIFICATION: I certify the specified therapy services for Evan Richardson are required, authorized, and reviewed every 30 days.
--- NOTE | 2021-08-29 10:07 | PC.NURSE ---
update given to RN at [facility]. they will call back this afternoon with an update.
--- NOTE | 2021-08-29 10:59 | SW/DCPLANNER ---
Addendum entered by Gail uLther 08/30/21 08:23: PATIENT DISCHARGING HOME TODAY AND DOES NOT HAVE ANY NEED FOR ANY HOME CARE... Original Note: PATIENT ADMITTED TO [facility] WITH ACUTE KIDNEY INJURY AND HYPERKALEMIA, PT EVAL WAS DONE AND HE IS INDEPENDENT WITH ALL OF HIS CARE NEEDS.. DR LUCERO STATED PATIENT MAY DISCHARGE HOME LATER IN THE DAY.. HE IS SELF CARE FOR ALL OF HIS NEEDS..
[2021-08-29 16:00] VITALS: BP 141/76; PULSE 93; RESP 16; TEMP 36.4; O2SAT 96
--- NOTE | 2021-08-29 16:39 | HMH.CONS ---
*Admission Date: 08/28/21 *Reason for consult:: Obstructive uropathy *History of present illness: Patient is a 76-year-old white male who was admitted to the hospital on August [address] scan was performed showing moderate bilateral hydroureteronephrosis, distended bladder and very large prostate estimated to be 803 cc. Lab work revealed his creatinine to be 23 with a potassium level 6.9. Hill catheter was placed with a reported 6 L residual. Since admission his creatinine has trended downwards and was 2.1 this morning. Urine cultures no growth thus far. Patient treated for prostatism in the past. He states baseline symptoms of urinary frequency every 2 hours, nocturia x2 poor stream with urinary straining and some occasional leakage of urine. His Hill bag is draining some dark bloody urine has been present since the catheter was placed. This is likely from some stretch injury of the bladder and/or kidneys. [facility] History *Have you ever received a pneumonia vaccine?: No *Have you received a flu vaccine this season?: No - *Social History Smoking Status: Never smoker Alcohol Intake: never *Occupational Status:: retired *Travel in the last 8 weeks: None Family Hx:: No significant family history Review of Systems - Review of Systems Review of systems:: pertinent systems reviewed and negative unless documented below - *Cardiovascular Denies chest pain - *Respiratory Denies shortness of breath - *Gastrointestinal Reports abdominal pain - *Genitourinary Reports difficulty urinating, Reports urinary frequency, Reports urinary hesitancy, Reports urinary incontinence - *Neurologic Reports weakness, Denies headache(s), Denies seizure-like activity Meds Home Medications Medication Instructions Recorded Confirmed Type ondansetron HCL [Ondansetron 4mg 4 mg PO TIDP PRN 08/29/21 08/29/21 History tab*] Allergies Allergy/AdvReac Type Severity Reaction Status Date / Time Penicillins Allergy Unknown Unknown Verified 08/28/21 14:30 allergy reaction Exam Vital signs and Labs for Last 24 Hours: Temp Pulse Resp BP Pulse Ox 98.3 F 83 18 140/70 97 08/29/21 08:00 08/29/21 08:00 08/29/21 08:00 08/29/21 08:00 08/29/21 08:00 Laboratory Results - last 24 hr 08/29/21 06:07: WBC 8.7, RBC 3.79 L, Hgb 11.5 L, Hct 36.0 L, MCV 95.0 H, MCH 30.3, MCHC 31.9, RDW 13.7, Plt Count 338, MPV 8.0, Neut % (Auto) 81.9 H, Lymph % (Auto) 8.4 L, [place] % (Auto) 7.6, Eos % (Auto) 1.6, Baso % (Auto) 0.6, Neut # (Auto) 7.1, Lymph # (Auto) 0.7, [place] # (Auto) 0.7, Eos # (Auto) 0.1, Baso # (Auto) 0.1 08/29/21 06:07: Sodium 147 H, Potassium 4.9, Chloride 116 H, Carbon Dioxide 19 L, Anion Gap 16.9 H, BUN 36 H D, Creatinine 2.10 H D, Estimated Creat Clear 32, Estimated GFR 31 L, Est GFR ( Amer) 38 L D, Glucose 112 H D, Calcium 9.3, Magnesium 2.2 I & O for Last 24 hours: Intake & Output 08/26/21 08/27/21 08/28/21 08/29/21 23:59 23:59 23:59 23:59 Intake Total 120 / 120 Output Total 8500 / 8500 1949 Balance -8380 / -8380 -1949 / Weight 79.379 kg 74.417 kg 73.68 kg Microbiology Reports for the Last 24 Hours: Microbiology 08/27/21 23:55 Urine,Clean Catch Urine Culture - Preliminary NO GROWTH AFTER 24 HOURS - Constitutional no acute distress - *Routine HEENT Exam Head: Present: normocephalic Eye: Present: EOMI, PERRL ENT: Present: mucous membranes moist - *Routine Neck Exam Present: supple. Absent: lymphadenopathy - *Routine Respiratory Exam Absent: accessory muscle use - *Routine Cardiovascular Exam Absent: JVD - *Routine Abdominal Exam Present: soft, normoactive bowel sounds. Absent: tenderness - *Routine Extremities Exam Absent: cyanosis, clubbing, edema - *Routine Skin Exam Present: warm. Absent: rash - *Routine Neurological Exam Present: alert, oriented X3 Internal Medicine - CN: Reslt -
--- NOTE | 2021-08-29 16:42 | PC.NURSE ---
Routine reassessment completed. Catheter noted to have pink tinged urine noted in tube and red tinged urine in bag. No further acute changes from previous assessment noted. Pt. denies pain. Call light within reach, will continue to monitor.
[2021-08-29 20:00] VITALS: BP 163/77; PULSE 80; RESP 17; TEMP 36.7; O2SAT 95
[2021-08-29 20:43] VITALS: O2SAT 98
[2021-08-30 04:00] VITALS: BP 167/94; PULSE 82; RESP 18; TEMP 36.8; O2SAT 96
--- NOTE | 2021-08-30 04:16 | PC.NURSE ---
Pt has rested well this shift with no complaints. No changes from previous assessment. F/C remains patent and draining blood tinged urine to bedside. VS remain stable. Will continue to monitor.
[2021-08-30 05:54] VITALS: BMI 23.4
[2021-08-30 07:05] LABS: Basophils # 0.1 K/mm3 (0-0.2); Basophils % 0.6 % (0.1-2.0); Eosinophils # 0.3 K/mm3 (0.0-0.4); Eosinophils % 2.4 % (0.1-12.0); Hemoglobin 12.4 g/dL (14.1-18.0); Lymphocytes # 1.1 K/mm3 (0.7-4.5); Lymphocytes % 10.8 % (10-50); Mean Corpuscular HGB Conc 31.7 g/dL (31.8-35.4); Mean Corpuscular Hemoglobin 30.5 pg (27.0-31.2); Mean Corpuscular Volume 96.4 fl (80-94); Mean Platelet Volume 7.6 fl (7.4-10.4); Monocytes # 0.7 K/mm3 (0.1-1.0); Monocytes % 7.1 % (1.7-9.3); Neutrophils # 8.2 K/mm3 (1.8-7.8); Neutrophils % 79.2 % (37.0-80.0); Platelet Count 348 K/mm3 (142-424); Red Blood Count 4.05 M/mm3 (4.60-6.20); Red Cell Distribution Width 13.9 % (11.5-17.5); White Blood Count 10.3 K/mm3 (4.8-10.8)
[2021-08-30 07:24] LABS: Anion Gap 11.7 mEq/L (5-15); Blood Urea Nitrogen 19 mg/dl (9-20); Calcium 9.3 mg/dl (8.4-10.2); Carbon Dioxide 25 mmol/L (22.0-30.0); Chloride 113 mmol/L (98-107); Creatinine Clearance Estimated 66 mL/min (50-200); Estimated Glomerular Filt Rate 82 ml/min (>60); GFR (African American) 100 ML/MIN (>60); Glucose 124 mg/dl (74-100); Potassium 4.7 mmoL/L (3.5-5.1); Sodium 145 mmol/L (136-145)
--- NOTE | 2021-08-30 07:34 | HMH.DCSUM ---
General - General Admission date:: 08/28/21 Discharge date: 08/30/21 HPI HPI: 76-year-old male presented to the emergency department overnight with abdominal swelling present for the last 7 to 8 days with associated decrease in urination with small volume voids. On August 17 patient was seen in the urgent treatment clinic and diagnosed with a urinary tract infection. Patient was given Bactrim. Within 48 hours he developed abdominal bloating. Patient returned to the urgent treatment clinic and was given Cipro. Patient did have abnormal urinalysis but urine culture ultimately showed no bacterial growth. Patient's abdominal discomfort persisted. Patient did not establish care with local physician and saw a physician in [place]. Labs were performed which showed elevated creatinine and the patient was contacted yesterday evening and instructed to go to the hospital. Patient presented to our facility and was found to have acute kidney injury with a creatinine of 23, BUN greater than 150, and a CT scan that showed bladder distention, ureteral swelling and hydronephrosis. Hill catheter was placed in the patient which produced 6 L of urine. Patient has since had an additional 2-1/2 L of urine output with now urine that is blood-tinged. Over the last 10 days he denies fevers or chills. Patient denies flank pain. He claims to have a history of an enlarged prostate which was confirmed on his CT scan. He does not recall any history of urinary difficulties Hospital Course Hospital Course: Patient was admitted for acute kidney injury from obstructive uropathy and a need for urologic consultation. Patient maintained good urine output during entire hospitalization. Dr. Womack evaluated the patient on August 29 and plans for cystoscopy were made. Patient was kept overnight on the because of blood in his urine which was believed to be due primarily to stretch injury. Patient's H&H remained stable during hospitalization and was actually higher at discharge then on admission. Creatinine trended down from 23 on admission to 0.9 on the day of discharge. Objective Vital signs: Temp Pulse Resp BP Pulse Ox 98.2 F 82 18 167/94 H 96 08/30/21 04:00 08/30/21 04:00 08/30/21 04:00 08/30/21 04:00 08/30/21 04:00 Results Labs on day of discharge: Labs from last 24 hours 08/30/21 08/30/21 06:33 06:33 WBC 10.3 RBC 4.05 L Hgb 12.4 L Hct 39.0 L MCV 96.4 H MCH 30.5 MCHC 31.7 L RDW 13.9 Plt Count 348 MPV 7.6 Neut % (Auto) 79.2 Lymph % (Auto) 10.8 [place] % (Auto) 7.1 Eos % (Auto) 2.4 Baso % (Auto) 0.6 Neut # (Auto) 8.2 H Lymph # (Auto) 1.1 [place] # (Auto) 0.7 Eos # (Auto) 0.3 Baso # (Auto) 0.1 Sodium 145 Potassium 4.7 Chloride 113 H Carbon Dioxide 25 Anion Gap 11.7 BUN 19 D Creatinine 0.90 D Estimated Creat Clear 66 Estimated GFR 82 Est GFR ( Amer) 100 D Glucose 124 H Calcium 9.3 DS: Diagnosis - Discharge Diagnosis (1) Acute kidney injury Status: Acute (2) Hyperkalemia Status: Resolved (3) Obstructive uropathy Status: Acute (4) UTI (urinary tract infection) Status: Suspected Discharge Plan - Patient Discharge Instructions ACTIVITY: Continue current activity DIET: continue same diet Patient Instructions: How to Care for Your Hill Catheter -- Male, Acute Kidney Injury, DI for Urinary Tract Infection (UTI) - Follow up Plan Follow up with: Scar Womack MD [Staff Physician] - 09/06/21 8:15 am (come to the oupt dept) Disposition: Home, Self-Care Condition at discharge:: Improved Home Medications: Home Medications Medication Instructions Recorded Confirmed Type ondansetron HCL [Ondansetron 4mg 4 mg PO TIDP PRN 08/29/21 08/29/21 History tab*] Prescriptions/Medication Reconciliation: Continued ondansetron HCL [Ondansetron 4mg tab*] 4 mg PO TIDP PRN PRN Reason: Nausea An
[2021-08-30 08:00] VITALS: BP 162/92; PULSE 89; RESP 18; TEMP 36.6; O2SAT 96
--- NOTE | 2021-08-30 13:56 | HMH.CONFU ---
Internal Medicine - PN: Subj *Date: 08/30/21 *Time: 13:56 Interval history: Patient with obstructive uropathy. Hill catheter still draining some dark bloody urine. Patient denies any gross hematuria prior to the onset of the catheter being placed. His creatinine has now decreased to 0.9. He is tolerating a regular diet but not taking in great oral intake. Exam Vital signs and Labs for Last 24 Hours: Temp Pulse Resp BP Pulse Ox 97.8 F 89 18 162/92 H 96 08/30/21 08:00 08/30/21 08:00 08/30/21 08:00 08/30/21 08:00 08/30/21 08:00 Laboratory Results - last 24 hr 08/30/21 06:33: WBC 10.3, RBC 4.05 L, Hgb 12.4 L, Hct 39.0 L, MCV 96.4 H, MCH 30.5, MCHC 31.7 L, RDW 13.9, Plt Count 348, MPV 7.6, Neut % (Auto) 79.2, Lymph % (Auto) 10.8, [place] % (Auto) 7.1, Eos % (Auto) 2.4, Baso % (Auto) 0.6, Neut # (Auto) 8.2 H, Lymph # (Auto) 1.1, [place] # (Auto) 0.7, Eos # (Auto) 0.3, Baso # (Auto) 0.1 08/30/21 06:33: Sodium 145, Potassium 4.7, Chloride 113 H, Carbon Dioxide 25, Anion Gap 11.7, BUN 19 D, Creatinine 0.90 D, Estimated Creat Clear 66, Estimated GFR 82, Est GFR ( Amer) 100 D, Glucose 124 H, Calcium 9.3 I & O for Last 24 hours: Intake & Output 08/27/21 08/28/21 08/29/21 08/30/21 23:59 23:59 23:59 23:59 Intake Total 120 / 120 240 / 360 420 / 420 Output Total 8500 / 8500 3050 / 3050 1000 / 1000 Balance -8380 / -8380 -2810 / -2690 -580 / -580 Weight 79.379 kg 74.417 kg 73.68 kg 71.838 kg Microbiology Reports for the Last 24 Hours: Microbiology 08/27/21 23:55 Urine,Clean Catch Urine Culture - Final NO GROWTH AFTER 48 HOURS - Constitutional no acute distress - *Routine HEENT Exam Head: Present: normocephalic Eye: Present: EOMI, PERRL ENT: Present: mucous membranes moist - *Routine Neck Exam Present: supple. Absent: lymphadenopathy - *Routine Respiratory Exam Absent: accessory muscle use - *Routine Cardiovascular Exam Absent: JVD - *Routine Abdominal Exam Present: soft, normoactive bowel sounds. Absent: tenderness - *Routine Extremities Exam Absent: cyanosis, clubbing, edema - *Routine Skin Exam Present: warm. Absent: rash - *Routine Neurological Exam Present: alert, oriented X3 Assessment and Plan (1) Acute kidney injury Status: Acute Category: Medical Code(s): N17.9 - Acute kidney failure, unspecified (2) Hyperkalemia Status: Resolved Category: Medical Code(s): E87.5 - Hyperkalemia (3) Obstructive uropathy Status: Acute Category: Medical Code(s): N13.9 - Obstructive and reflux uropathy, unspecified Patient with bladder distention, bilateral hydronephrosis due to very large prostate. His urine remains bloody this morning and is likely due to stretch injury of the bladder and/or kidney. No clots are present. Patient is scheduled for cystoscopy and transrectal ultrasound next week. From my standpoint I think it would be okay to go home today and he was encouraged to drink plenty of fluids to flush out the hematuria. (4) UTI (urinary tract infection) Status: Suspected Category: Medical Code(s): N39.0 - Urinary tract infection, site not specified
== END 2021-08-30 14:00 | disposition home or self-care (01) ==
LOC: ER 08-28 07:49 → 2ND 08-28 09:20
PROVIDERS: Admitting Provider Family Medicine; Emergency Provider Emergency Medicine; PCP Nurse Practitioner; Visit Provider Family Medicine
DX: N17.9 Acute kidney failure, unspecified (principal); E87.5 Hyperkalemia; Z20.822 Contact with and (suspected) exposure to COVID-19; N13.9 Obstructive and reflux uropathy, unspecified; N39.0 Urinary tract infection, site not specified
CPT/HCPCS: G0378; 36415; 71046; 74176; 80048; 80053; 81001; 83735; 84145; 85007; 85025; 85651; 86140; 87086; 93005; 96365; 96367; 96375; 97162; 99285; C9803; J0696; U0003; U0005

== ENCOUNTER 2021-09-05 20:44 | Emergency (ER) | payer MEDICARE, SELFPAY ==
[2021-09-05 20:32] VITALS: RESP 18; TEMP 37.1; O2SAT 98; BMI 24.3
[2021-09-05 20:44] VITALS: BP 0/0; PULSE 0; RESP 0; TEMP -17.7; TEMP 0
== END 2021-09-05 21:35 | disposition left against medical advice (07) ==
PROVIDERS: Emergency Provider Emergency Medicine; PCP Family Medicine
DX: Z53.21 Procedure and treatment not carried out due to patient leaving prior to being seen by health care provider (principal)
CPT/HCPCS: G0463; 99211

== ENCOUNTER 2021-09-30 08:13 | Day surgery (SDC) | payer MEDICARE, SELFPAY ==
[2021-09-04 09:04] VITALS: BMI 24.3
[2021-09-30 08:37] VITALS: BP 141/90; PULSE 71; RESP 18; TEMP 36.7; O2SAT 97
--- NOTE | 2021-09-30 10:03 | HMH.ANESCL ---
[facility] Anesthesia Checklist - Structural Data Admitted From: Home Planned Operative Procedure/s: cysto w trans rectal ultrasound Consent for Planned Operative Procedure(s) Verified: Yes - Additional verifications Anesthesia Reactions: No Hx Blood Transfusions: No Blood Transfusion Reaction: No - Airway Assessment C-Spine Mobility Assessed: Yes TMJ Mobility Assessed: Yes Dentition: Good Dentition - Neurological Assessment Level of Consciousness: Awake, Alert, Appropriate - Anesthesia Plan Anesthesia Risk discussed: Yes Anesthesia Plan: Verified ASA Class: II Anesthesia Type: General [facility] History I have reviewed the patient's past medical history: Yes Medical History: Denies:: Cancer, Diabetes Mellitus Type 1, Diabetes Mellitus Type 2, MRSA, Seizures *Have you ever received a pneumonia vaccine?: No *Have you received a flu vaccine this season?: No Other Medical History: Denies: Blood Transfusion Reaction Anesthesia experience/problems:: none Amputation: No - *Social History Smoking Status: Never smoker Alcohol Intake: never Substance Use Type: denies use *Occupational Status:: retired *Travel in the last 8 weeks: None Family Hx:: No significant family history
[2021-09-30 10:53] VITALS: BP 122/79; PULSE 64; RESP 18; TEMP 36.1; O2SAT 97
[2021-09-30 11:03] VITALS: BP 124/72; PULSE 61; RESP 18; O2SAT 98
[2021-09-30 11:13] VITALS: BP 141/76; PULSE 60; RESP 18; O2SAT 98
[2021-09-30 11:23] VITALS: BP 141/76; PULSE 62; RESP 18; O2SAT 99
--- NOTE | 2021-09-30 12:57 | HMH.OPNOTE ---
Date of procedure: 09/30/21 Pre-op Diagnosis:: BPH with urinary obstruction Post-op Diagnosis:: BPH with urinary obstruction Procedure performed:: Cystoscopy and transrectal ultrasound Surgeon:: Scar Womack MD GLOBAL MANAGER:: Andres Melendez Anesthesia: MAC Estimated blood loss (mL): 0 Clinical Note:: 76-year-old white male with a recent hospitalization for lower abdominal pain. Hill catheter was placed with a large postvoid residual and resolution of the lower abdominal pain. Patient's creatinine on admission to the hospital was 23 and it decreased to 2 with Hill catheter management by the time of discharge [address] scan has shown a large prostate and bilateral hydroureteronephrosis that admission. His bladder was very distended as well. He presents for urologic evaluation today. Operative findings:: Patient with large prostate partially scaring the ureteral orifices. There was some diffuse trabeculation in the bladder and evidence of high capacity bladder towards the anterior aspect. No cellules or diverticula were noted. Prostate did show trilobar hyperplasia. Transrectal ultrasound showed an 85 g prostate. Operative note:: Patient taken to the operating room after informed consent was obtained. Was placed on the operating room table in the supine position and monitored anesthesia care administered. His indwelling Hill catheter was removed. He was then placed into the dorsal lithotomy position and prepped and draped in the standard surgical fashion. A 22 [place] cystoscope then passed into the urethra into the prostatic urethra which showed trilobar hyperplasia. The bladder was entered and examined in a systematic fashion. There was diffuse moderate trabeculation along the bladder base. The anterior portion of the bladder seemed to be more capacious consistent with a history of distention. There was some bullous edema noted along the floor of the bladder due to his indwelling Hill that he has had for about a month. The ureteral orifices were partially obscured by the median lobe. Clear efflux of urine was noted from each orifice. Scope was then pulled back in the prostatic urethra examined. It was very long was measured at about 3 cm. There was a significant hyperplasia of the lateral lobes. Scope then removed and remaining in the dorsolithotomy position the transrectal ultrasound probe placed into the rectum and the prostate was easily visualized. It had a heterogeneous appearance and there is no evidence of hypoechoic or hyperechoic lesions. Few small scattered calcifications were noted. Prostate was measured at 85.3 cm?. Probe removed. Patient tolerated procedure well no complications. We discussed the findings in the recovery room and I think patient is a good candidate for TURP. We will schedule this at his earliest convenience. Condition: stable Disposition: same day Specimens:: None Complications:: None
== END 2021-09-30 11:26 | disposition home or self-care (01) ==
LOC: OR 08:16
PROVIDERS: PCP Nurse Practitioner; Visit Provider Urology
PROC: 0TJB8ZZ Inspection of Bladder, Via Natural or Artificial Opening Endoscopic (ICD-10-PCS; CPT 52000; principal; 2021-09-30 09:45)
DX: N40.1 Benign prostatic hyperplasia with lower urinary tract symptoms (principal); N13.8 Other obstructive and reflux uropathy
CPT/HCPCS: 52000; 76872

== ENCOUNTER → 2021-11-08 10:32 | Outpatient (CLI) | payer MEDICARE, SELFPAY ==
[2021-11-08 10:36] LABS: MANUAL DIFFERENTIAL MANUAL DIFFERENTIAL (MANUAL DIFF)
[2021-11-08 10:51] LABS: Basophils # 0.1 K/mm3 (0-0.2); Basophils % 1.5 % (0.1-2.0); Eosinophils # 0.1 K/mm3 (0.0-0.4); Eosinophils % 2.1 % (0.1-12.0); Hematocrit 42.8 % (42.0-52.0); Lymphocytes # 1.3 K/mm3 (0.7-4.5); Lymphocytes % 23.5 % (10-50); Mean Corpuscular HGB Conc 32.6 g/dL (31.8-35.4); Mean Corpuscular Hemoglobin 30.9 pg (27.0-31.2); Mean Corpuscular Volume 94.8 fl (80-94); Mean Platelet Volume 9.4 fl (7.4-10.4); Monocytes # 0.4 K/mm3 (0.1-1.0); Monocytes % 6.4 % (1.7-9.3); Neutrophils # 3.6 K/mm3 (1.8-7.8); Neutrophils % 66.5 % (37.0-80.0); Platelet Count 202 K/mm3 (142-424); Red Blood Count 4.52 M/mm3 (4.60-6.20); Red Cell Distribution Width 15.2 % (11.5-17.5); White Blood Count 5.5 K/mm3 (4.8-10.8)
[2021-11-08 11:40] LABS: Blood Urea Nitrogen 16 mg/dl (9-20); Calcium 9.1 mg/dl (8.4-10.2); Carbon Dioxide 26 mmol/L (22.0-30.0); Chloride 107 mmol/L (98-107); Estimated Glomerular Filt Rate 82 ml/min (>60); GFR (African American) 100 ML/MIN (>60); Glucose 110 mg/dl (74-100); Sodium 141 mmol/L (136-145)
[2021-11-08 13:36] LABS: Eosinophils % 2 % (0-3); Lymphocytes % 17 % (10-50); Monocytes % 12 % (2-9); Neutrophils % 69 % (42-76); Platelet Estimate Normal; RBC Morphology Normal; Total Cells Counted 100
== END ==
PROVIDERS: PCP Family Medicine; Visit Provider Urology
DX: N40.1 Benign prostatic hyperplasia with lower urinary tract symptoms (principal); N39.0 Urinary tract infection, site not specified; R31.9 Hematuria, unspecified; Z01.812 Encounter for preprocedural laboratory examination; Z11.52 Encounter for screening for COVID-19
CPT/HCPCS: 36415; 80048; 85007; 85014; 85018; 85048; 85049; C9803; U0003; U0005

== ENCOUNTER 2021-11-11 08:28 | Observation (INO) | payer MEDICARE, SELFPAY ==
[2021-11-07 08:56] VITALS: BMI 23.6
[2021-11-11] VITALS (20 sets, daily range): BP systolic 117–164; BP diastolic 66–90; PULSE 55–83; RESP 12–18; TEMP 36.4–43; O2SAT 93–100; BMI 23.7
[2021-11-11 07:56] LABS: Coronavirus 19, PCR Not Detected (NotDetected); Influenza A, PCR Not Detected (NotDetected); Influenza B, PCR Not Detected (NotDetected)
--- NOTE | 2021-11-11 08:16 | HMH.ANESCL ---
[facility] Anesthesia Checklist - Patient Identification Patient Identification: Arm Band - Structural Data Admitted From: Home Planned Operative Procedure/s: TURP Consent for Planned Operative Procedure(s) Verified: Yes - NPO Status Verified Time NPO: 00:00 - Additional verifications Anesthesia Reactions: No Hx Blood Transfusions: No Blood Transfusion Reaction: No - Airway Assessment C-Spine Mobility Assessed: Yes TMJ Mobility Assessed: Yes Dentition: Good Dentition - Neurological Assessment Level of Consciousness: Awake Hx Seizures: No Numbness or tingling in extremities: No - Anesthesia Plan Anesthesia Risk discussed: Yes Anesthesia Plan: Verified ASA Class: I Anesthesia Type: General [facility] History I have reviewed the patient's past medical history: Yes Medical History: Denies:: Cancer, Diabetes Mellitus Type 1, Diabetes Mellitus Type 2, Internal Pacemaker, MRSA, Seizures *Have you ever received a pneumonia vaccine?: No *Have you received a flu vaccine this season?: No Other Medical History: Denies: Blood Transfusion Reaction Anesthesia experience/problems:: None Other Surgeries: No: Pacemaker Amputation: No Fractures: No - *Social History Last grade of school completed: High school graduate Smoking Status: Never smoker Alcohol Intake: never Substance Use Type: denies use *Occupational Status:: retired Housing: house Household Members: spouse *Travel in the last 8 weeks: None Family Hx:: No significant family history
--- NOTE | 2021-11-11 08:16 | HMH.PHAINT ---
MEDICATION RECONCILIATION COMPLETED ON PATIENT USING EXTERNAL FILL HISTORY FROM PHARMACY. -IGNACIA BRANDT, ZAHEERD
--- NOTE | 2021-11-11 10:15 | SUR.OPER ---
0935- frazier catheter that the pt had prior to procedure removed at this time by franchesca Valenzuela. Catheter intact, no skin breakdown noted.
--- NOTE | 2021-11-11 11:23 | HMH.ANESI ---
[facility] Anesthesia Record Part I Intake, IV Amount: 1,100 Estimated blood loss (mL): 5 Urine output (mL): 0 Blood Pressure: 127/67 SaO2: 95 Pulse Rate: 63 Respiratory Rate: 16 Temperature: 99.4 F Patient is:: Drowsy, Stable Stable to PACU at:: 11:20
--- NOTE | 2021-11-11 11:25 | PC.NURSE ---
pt arrived to pacu with cbi infusing, fc in place. output of 1500ml pink tinged irrigation noted in fc.
--- NOTE | 2021-11-11 11:34 | P.OP_ITS ---
Date of procedure: 11/11/21 Pre-op Diagnosis:: BPH with obstruction Post-op Diagnosis:: BPH with obstruction Procedure performed:: TURP Surgeon:: Scar Womack MD NETWORK TECHNICAL ANALYST:: Daniel Alvarez Anesthesia: LMA Estimated blood loss (mL): 5 Clinical Note:: 76-year-old white male admitted to the hospital on September and found to be in urinary retention. Reportedly he had a 6 L postvoid residual upon catheter placement. His creatinine was 23 on admission and had trended down to 2 by the time of discharge. He was discharged home with his Hill catheter and returns today for transurethral resection of prostate. Cystoscopy has been performed in the interim showing trilobar hyperplasia and an 85 g prostate. Operative findings:: Prostate showed trilobar hyperplasia. The ureteral orifices in their normal anatomic position and very close to the median lobe. The bladder showed some moderate trabeculation in the bladder base but otherwise appeared normal. Operative note:: Patient taken to the operating room after informed consent was obtained. He was placed on the operating table in the supine position and general anesthesia administered. Preoperative antibiotics and sequential compression device is in place. His Hill catheter was removed and he was placed into the dorsolithotomy position. Was prepped and draped in the standard surgical fashion. 22 [place] scope passed into the urethra and into the prostatic urethra which showed trilobar hyperplasia. The bladder was entered and examined in a systematic fashion. No mucosal abnormalities were noted. The bladder appeared normal capacity. Moderate trabeculation noted along the bladder base. Ureteral orifices were near the median lobe. The cystoscope removed and our 28 [place] resectoscope sheath passed into the bladder without difficulty. The resectoscope was then placed through the sheath and resection began at the bladder neck resecting it in a circumferential fashion. Then resected the floor of the prostate urethra back to the verumontanum. The left side of the prostate was then resected in a counterclockwise fashion back to the veru. Right side of the prostate was resected back to the veru in a clockwise fashion. The apical tissue was resected as stage III of the resection. Hemostasis achieved and all the prostatic chips were removed. At the end of the case there was a nice TUR defect. Scope removed and a 22 [place] Hill catheter was placed with the aid of a catheter guide. 30 cc were placed into the balloon and catheter was placed to continuous bladder irrigation. The urine was clear at discharge. Patient tolerated procedure well there are no complications. Condition: stable Disposition: PACU Specimens:: Prostate tissue Complications:: None
--- NOTE | 2021-11-11 14:16 | P.PN_ITS ---
[facility] Anesthesia Record Part II Discharge Time: 11:40 Destination: Surgical Day Care (OP Surgery) PACU nurse assessment reviewed?: Yes Patient Condition:: Good Anesthesia Complications:: None Swallowing reflex intact?: Yes Cyanosis?: No Blood Pressure: 164/90 Pulse Rate: 67 Temperature: 97.6 F Mental Status: Alert & Oriented Pain level:: 0 Nausea and/or vomitting:: None Intake, IV Amount: 0
--- NOTE | 2021-11-11 14:24 | P.CONPHA_ITS ---
[facility] Pharmacy VTE Monitoring - Patient Demographics Admission date: 11/11/21 Report Date: 11/11/21 Time: 14:24 Allergies/Adverse Reactions: Patient Allergies Penicillins Allergy (Unknown, Verified 11/11/21 07:43) Unknown allergy reaction Height: 1.75 m Weight: 72.575 kg - Prophylaxis VTE Prophylaxis Ordered?: Yes Types of VTE Prophylaxis: IPCS Thigh High Location of Applied Device: Bilateral Lower Extremeties
--- NOTE | 2021-11-11 15:38 | HMH.HP ---
*Admission Date: 11/11/21 *Chief complaint: BPH with obstruction *History of present illness: Patient is a 76-year-old white male with history of urinary retention 6 weeks ago. He presented to the hospital on September 30 with abdominal pain and was noted to have a distended bladder and bilateral hydroureteronephrosis and very large prostate. Hill catheter was placed with a reported 6 L residual. His creatinine was 23 on admission and trended down to 2 at discharge. Subsequent cystoscopy showed bilobar hyperplasia and an 85 g prostate. [facility] History Medical History: Denies:: Cancer, Diabetes Mellitus Type 1, Diabetes Mellitus Type 2, Internal Pacemaker, MRSA, Seizures *Have you ever received a pneumonia vaccine?: Yes *Have you received a flu vaccine this season?: Yes Other Medical History: Denies: Blood Transfusion Reaction Anesthesia experience/problems:: None Other Surgeries: No: Pacemaker Amputation: No Fractures: No - *Social History Last grade of school completed: High school graduate Smoking Status: Never smoker Alcohol Intake: never Substance Use Type: denies use *Occupational Status:: retired Housing: house Household Members: spouse *Travel in the last 8 weeks: None Family Hx:: No significant family history Review of Systems - Review of Systems Review of systems:: pertinent systems reviewed and negative unless documented below Meds Home Medications Medication Instructions Recorded Confirmed Type Finasteride [Proscar] 5 mg PO DAILY 11/11/21 11/11/21 History Allergies Allergy/AdvReac Type Severity Reaction Status Date / Time Penicillins Allergy Unknown Unknown Verified 11/11/21 07:43 allergy reaction Exam Vital signs and Labs for Last 24 Hours: Temp Pulse Resp BP Pulse Ox 97.6 F 67 16 164/90 H 95 11/11/21 14:17 11/11/21 14:17 11/11/21 11:40 11/11/21 14:17 11/11/21 11:40 Laboratory Results - last 24 hr 11/11/21 07:48: SARS-CoV-2 (PCR) Not detected, Influenza A Untype (PCR) Not detected, Influenza Type B (PCR) Not detected I & O for Last 24 hours: Intake & Output 11/08/21 11/09/21 11/10/21 11/11/21 23:59 23:59 23:59 23:59 Intake Total 1440 / 1440 Output Total 2600 / 2600 Balance -1160 / -1160 Weight 72.575 kg - Constitutional no acute distress - *Routine HEENT Exam Head: Present: normocephalic Eye: Present: EOMI, PERRL ENT: Present: mucous membranes moist - *Routine Neck Exam Present: supple. Absent: lymphadenopathy - *Routine Respiratory Exam Absent: accessory muscle use - *Routine Cardiovascular Exam Absent: JVD - *Routine Abdominal Exam Present: soft. Absent: tenderness - *Routine Rectal Exam Rectal:: deferred - *Routine Genitalia Exam Genitalia:: normal male - *Routine Extremities Exam Absent: cyanosis, clubbing, edema - *Routine Skin Exam Present: warm. Absent: rash - *Routine Neurological Exam Present: alert, oriented X3 Assessment and Plan (1) Obstructive uropathy Status: Acute Category: Medical Code(s): N13.9 - Obstructive and reflux uropathy, unspecified Patient with a recent urinary retention returns for urologic management. Transurethral section of prostate is planned today. We have discussed the operative procedure and complications with the patient and they wished to proceed.
[2021-11-12] VITALS: BP 122/64; PULSE 64; RESP 16; TEMP 36.7; O2SAT 96
[2021-11-12 04:00] VITALS: BP 136/71; PULSE 57; RESP 16; TEMP 36.6; O2SAT 96
[2021-11-12 05:00] VITALS: BMI 23.7
[2021-11-12 06:03] LABS: Basophils % 0.4 % (0.1-2.0); Eosinophils % 0.2 % (0.1-12.0); Hematocrit 38.5 % (42.0-52.0); Lymphocytes # 1.2 K/mm3 (0.7-4.5); Lymphocytes % 13.3 % (10-50); Mean Corpuscular HGB Conc 33.7 g/dL (31.8-35.4); Mean Corpuscular Hemoglobin 31.2 pg (27.0-31.2); Mean Corpuscular Volume 92.5 fl (80-94); Mean Platelet Volume 9.2 fl (7.4-10.4); Monocytes # 0.5 K/mm3 (0.1-1.0); Monocytes % 5.5 % (1.7-9.3); Neutrophils # 7.2 K/mm3 (1.8-7.8); Neutrophils % 80.6 % (37.0-80.0); Platelet Count 201 K/mm3 (142-424); Red Blood Count 4.16 M/mm3 (4.60-6.20); White Blood Count 8.9 K/mm3 (4.8-10.8)
[2021-11-12 06:33] LABS: Chloride 110 mmol/L (98-107)
[2021-11-12 06:34] LABS: Potassium 3.9 mmoL/L (3.5-5.1); Sodium 137 mmol/L (136-145)
[2021-11-12 06:36] LABS: Blood Urea Nitrogen 14 mg/dl (9-20); Creatinine Clearance Estimated 67 mL/min (50-200); Estimated Glomerular Filt Rate 82 ml/min (>60); GFR (African American) 100 ML/MIN (>60)
[2021-11-12 06:37] LABS: Anion Gap 5.9 mEq/L (5-15); Calcium 7.6 mg/dl (8.4-10.2); Carbon Dioxide 25 mmol/L (22.0-30.0); Glucose 114 mg/dl (74-100)
[2021-11-12 08:00] VITALS: BP 150/61; PULSE 57; RESP 14; TEMP 36.9; O2SAT 98
--- NOTE | 2021-11-12 09:51 | P.PN_ITS ---
Internal Medicine - PN: Subj *Date: 11/12/21 *Time: 09:51 Interval history: Patient is status post TURP yesterday. He denies any problems overnight and is tolerating his diet. Continuous bladder irrigation was performed overnight and his urine is blood-tinged this morning on CBI. Exam Vital signs and Labs for Last 24 Hours: Temp Pulse Resp BP Pulse Ox 98.5 F 57 L 14 150/61 H 98 11/12/21 08:00 11/12/21 08:00 11/12/21 08:00 11/12/21 08:00 11/12/21 08:00 Laboratory Results - last 24 hr 11/12/21 05:17: WBC 8.9, RBC 4.16 L, Hgb 13.0 L, Hct 38.5 L, MCV 92.5, MCH 31.2, MCHC 33.7, RDW 15.0, Plt Count 201, MPV 9.2, Neut % (Auto) 80.6 H, Lymph % (Auto) 13.3, [place] % (Auto) 5.5, Eos % (Auto) 0.2, Baso % (Auto) 0.4, Neut # (Auto) 7.2, Lymph # (Auto) 1.2, [place] # (Auto) 0.5, Eos # (Auto) 0.0, Baso # (Auto) 0.0 11/12/21 05:17: Sodium 137, Potassium 3.9, Chloride 110 H, Carbon Dioxide 25, Anion Gap 5.9, BUN 14, Creatinine 0.90, Estimated Creat Clear 67, Estimated GFR 82, Est GFR ( Amer) 100, Glucose 114 H, Calcium 7.6 L I & O for Last 24 hours: Intake & Output 11/09/21 11/10/21 11/11/21 11/12/21 23:59 23:59 23:59 23:59 Intake Total 2374 / 2374 360 / 360 Output Total 3000 / 3000 350 / 350 Balance -626 / -626 Weight 72.575 kg 72.603 kg - Constitutional no acute distress - *Routine HEENT Exam Head: Present: normocephalic Eye: Present: EOMI, PERRL ENT: Present: mucous membranes moist - *Routine Neck Exam Present: supple. Absent: lymphadenopathy - *Routine Respiratory Exam Absent: accessory muscle use - *Routine Cardiovascular Exam Absent: JVD - *Routine Abdominal Exam Present: soft, normoactive bowel sounds. Absent: tenderness - *Routine Extremities Exam Absent: cyanosis, clubbing, edema - *Routine Skin Exam Present: warm. Absent: rash - *Routine Neurological Exam Present: alert, oriented X3 Assessment and Plan (1) Obstructive uropathy Status: Acute Category: Medical Code(s): N13.9 - Obstructive and reflux uropathy, unspecified Patient is postop day 1 status post TURP. Will stop the continuous bladder irrigation and Hep-Lock his IV and allow him to get up and move around. If his urine remains acceptable on color we will discharge home later today with his Hill catheter in place.
--- NOTE | 2021-11-12 12:56 | HMH.DCSUM ---
General - General Admission date:: 11/11/21 Discharge date: 11/12/21 HPI HPI: Patient is a 76-year-old white male with history of urinary retention 6 weeks ago. He presented to the hospital on September 30 with abdominal pain and was noted to have a distended bladder and bilateral hydroureteronephrosis and very large prostate. Frazier catheter was placed with a reported 6 L residual. His creatinine was 23 on admission and trended down to 2 at discharge. Subsequent cystoscopy showed bilobar hyperplasia and an 85 g prostate. Patient was taken to the operating room on 11/11/2021 and transurethral resection of prostate performed without complication. He was discharged to the floor postoperatively where he underwent a uneventful postoperative course. His urine was slightly blood-tinged off CBI in the afternoon of postop day 1. Sodium level and creatinine level were normal and he was tolerating diet and ambulating without difficulty. Hospital Course Hospital Course: Patient admitted on 11/11/2021 taken to the operating room for transurethral resection of prostate. This was performed without complication patient transferred for to the recovery room and to the floor postoperatively. On postop day 1 he was doing well. He was tolerating diet and ambulating the halls without difficulty. His urine was blood-tinged after ambulating in the halls and off of CBI and plan was to discharge home with his Frazier catheter. Objective Vital signs: Temp Pulse Resp BP Pulse Ox 98.5 F 57 L 14 150/61 H 98 11/12/21 08:00 11/12/21 08:00 11/12/21 08:00 11/12/21 08:00 11/12/21 08:00 - *Routine HEENT Exam Head: Present: normocephalic Eye: Present: EOMI, PERRL ENT: Present: mucous membranes moist - *Routine Neck Exam Present: supple - *Routine Respiratory Exam Absent: accessory muscle use - *Routine Cardiovascular Exam Absent: JVD - *Routine Abdominal Exam Present: soft. Absent: tenderness - *Routine Extremities Exam Absent: cyanosis, clubbing, edema - *Routine Skin Exam Present: warm. Absent: rash - Detailed Eye Exam Eyelids: Bilateral normal inspection Results Labs on day of discharge: Labs from last 24 hours 11/12/21 11/12/21 05:17 05:17 WBC 8.9 RBC 4.16 L Hgb 13.0 L Hct 38.5 L MCV 92.5 MCH 31.2 MCHC 33.7 RDW 15.0 Plt Count 201 MPV 9.2 Neut % (Auto) 80.6 H Lymph % (Auto) 13.3 [place] % (Auto) 5.5 Eos % (Auto) 0.2 Baso % (Auto) 0.4 Neut # (Auto) 7.2 Lymph # (Auto) 1.2 [place] # (Auto) 0.5 Eos # (Auto) 0.0 Baso # (Auto) 0.0 Sodium 137 Potassium 3.9 Chloride 110 H Carbon Dioxide 25 Anion Gap 5.9 BUN 14 Creatinine 0.90 Estimated Creat Clear 67 Estimated GFR 82 Est GFR ( Amer) 100 Glucose 114 H Calcium 7.6 L DS: Diagnosis - Discharge Diagnosis (1) Obstructive uropathy Status: Acute Problem details: Patient doing well on postop day 1 after TURP. His urine remained slightly blood-tinged off of CBI and after ambulating in the halls. He was tolerating a regular diet and was deemed ready for discharge. We discussed pushing fluids and restricting any strenuous activity. He will be discharged home with his Frazier catheter and return to the office in 3 days for a voiding trial. Discharge Plan - Patient Discharge Instructions ACTIVITY: Limited activity DIET: regular diet Additional Instructions: home with frazier/push fluids Patient Instructions: DI for Transurethral Resection of the Prostate - Follow up Plan Follow up with: Scar Womack MD [Staff Physician] - 11/15/21 3:00 pm Disposition: Home, Self-Care Condition at discharge:: Stable Home Medications: Home Medications Medication Instructions Recorded Confirmed Type Finasteride [Proscar] 5 mg PO DAILY 11/11/21 11/11/21 History Prescriptions/Medication Reconciliation: Discontinued Finasteride [Proscar] 5 mg PO DAILY - Problem Recon
== END 2021-11-12 13:40 | disposition home or self-care (01) ==
LOC: 2ND 08:29
PROVIDERS: Admitting Provider Urology; PCP Family Medicine; Visit Provider Urology
PROC: 0VT08ZZ Resection of Prostate, Via Natural or Artificial Opening Endoscopic (ICD-10-PCS; CPT 52601; principal; 2021-11-11 09:00)
DX: N13.9 Obstructive and reflux uropathy, unspecified (principal); Z20.822 Contact with and (suspected) exposure to COVID-19
CPT/HCPCS: 52601; G0378; 36415; 80048; 85025; 88305; 96374; C9803; J2405; U0003; U0005

== ENCOUNTER 2021-11-17 10:24 | Observation (INO) | payer MEDICARE, SELFPAY ==
[2021-11-17] VITALS (8 sets, daily range): BP systolic 111–146; BP diastolic 61–74; PULSE 54–80; RESP 16–19; TEMP 36.4–36.9; O2SAT 96–99; BMI 24.3; BMI 24.7
--- NOTE | 2021-11-17 10:40 | HMH.EDGENADL ---
ED Disposition Clinical Impression: VIRGEN (acute kidney injury), Hematuria, Urinary retention Disposition: Admitted As Inpatient Condition on Discharge: Good Referrals: August Weaver MD [Primary Care Provider] - - Critical Care Critical Care Time: No Attestation: On 11/17/21, the high probability of a clinically significant, sudden or life threatening deterioration of the following system(s) required my full and direct attention, intervention and personal management. The time I documented below is in addition to time spent performing reported procedures but includes the following listed in this critical care notation. Medical Decision Making - Fred Inquiry Pt receiving controlled substance: No - Lab Data Lab Results 11/17/21 11:30: Urine Color Straw, Urine Appearance Sl cloudy, Urine pH 5.5, Ur Specific Delta 1.010, Urine Protein 2+, Urine Glucose (UA) Negative, Urine Ketones Negative, Urine Blood 3+, Urine Nitrate Negative, Urine Bilirubin Negative, Urine Urobilinogen 0.2, Ur Leukocyte Esterase 1+ A, Urine RBC 10-20, Urine WBC 3-5, Ur Squamous Epith Cells Occasional, Amorphous Sediment 2+, Urine Bacteria 1+ 11/17/21 11:45: WBC 12.5 H, RBC 4.62, Hgb 14.3, Hct 43.3, MCV 93.7, MCH 31.0, MCHC 33.1, RDW 14.8, Plt Count 185, MPV 9.4, Neut % (Auto) 87.1 H, Lymph % (Auto) 4.6 L, [place] % (Auto) 5.3, Eos % (Auto) 1.8, Baso % (Auto) 1.2, Neut # (Auto) 10.9 H, Lymph # (Auto) 0.6 L, [place] # (Auto) 0.7, Eos # (Auto) 0.2, Baso # (Auto) 0.2 11/17/21 11:45: Sodium 132 L, Potassium 5.1, Chloride 100, Carbon Dioxide 21 L, Anion Gap 16.1 H, BUN 50 H, Creatinine 4.70 H, Estimated Creat Clear 15, Estimated GFR 12 L*, Est GFR ( Amer) 15 L*, Glucose 113 H, Calcium 9.0, Total Bilirubin 1.0, AST 42, ALT 17, Alkaline Phosphatase 84, Total Protein 7.0, Albumin 3.9, Globulin 3.1, Albumin/Globulin Ratio 1.3 Result diagrams: 11/17/21 11:45 11/17/21 11:45 Orders (Tests/Meds): ED MEDICATIONS Generic Name Dose Route Start Last Admin Trade Name Freq PRN Reason Stop Dose Admin Lactated Ringer's 1,000 mls @ 999 mls/hr 11/17/21 12:30 Lactated Ringer's 1000 Ml Bag IV 11/17/21 13:30 .[id number] FLORA Discontinued Medications Generic Name Dose Route Start Last Admin Trade Name Freq PRN Reason Stop Dose Admin Acetaminophen 1,000 mg 11/17/21 10:39 Acetaminophen 500mg Tab PO 11/17/21 10:40 ONCE ONE ORDERS Category Date Time Status Complete Blood Count Auto Diff Stat Lab 11/17/21 11:45 Results Urine Culture Stat Micro 11/17/21 11:30 Received Medical Decision Narrative: Differential diagnosis includes but is not limited to urinary retention secondary to postoperative changes versus ongoing BPH, VIRGEN, UTI. Patient is well-appearing, no acute distress, with mild lower abdominal tenderness to palpation without rigidity, rebound. Catheterization of the urethra was done here in the ED but it was difficult requiring multiple attempts due to intermittent obstruction along starting with 10 F to then 16 F with good urine flow approximately 1000 cc output but was dark maroon in color and with small specks of blood within tubing during flushing of catheter. Suspect postoperative swelling or blood clots being cause of obstruction. Labs remarkable for creatinine 4.7 with GFR<20. Will give IVF bolus here in ED 1 liter LR. K 5.1 without associated ekg changes. After initial irrigation of 500 cc NS, urine cleared to light pink. Spoke with Dr. Borges regarding this patient's presentation, workup, evaluation, who agreed with plan for admission. General Adult HPI - General Stated complaint: surgery 11/11, trouble urinating Time Seen by Provider: 11/17/21 10:50 - History of Present Illness HPI narrative: 76-year-old male with a history of BPH status post TURP on 11/11/2021, presents for evaluation of decreasing urination. Chart review and per patient report, patient passed voiding trial on 11/15/2021 in urology clinic, and had h
[2021-11-17 11:41] LABS: Microscopic, Urine URINE MICROSCOPIC (MICROSCOPIC)
[2021-11-17 11:42] LABS: Appearance,Urine SL CLOUDY (Clear); Bilirubin,Urine Negative (Negative); Blood, Urine 3+ (Negative); Color,Urine STRAW (Yellow); Glucose,Urine (UA) Negative (Negative); Ketones,Urine Negative (Negative); Leukocyte Esterase,Urine 1+ (Negative); Nitrate,Urine Negative (Negative); PH,Urine 5.5 (5.0-8.5); Protein,Urine 2+ (Negative); Urobilinogen,Urine 0.2 EU/dl (0.2)
--- NOTE | 2021-11-17 11:45 | PC.NURSE ---
ATTEMPTED TO INSERT SEVERAL DIFFERENT SIZE LESLIE CATH 10, 14, 16,18, 20, 22. NOTICED RESISTANCE WITH INSERTION. THERE WAS URINE RETURN DARK TEA COLOR NO BLOOD CLOTS NOTED. PT C/O PAIN AND BURNING WHEN ATTEMPTING TO INFLATE BALLOON. ADDED 5CC TO BALLOON WITH NO C/O FROM PT. NO URINE RETURN DEFLATED BALLOON WITH URINE RETURN. BALLOON INFLATED WITH 2CC WITH URINE RETURN.
--- NOTE | 2021-11-17 11:50 | PC.NURSE ---
1000CC URINE OUTPUT
[2021-11-17 11:52] LABS: Basophils # 0.2 K/mm3 (0-0.2); Basophils % 1.2 % (0.1-2.0); Eosinophils # 0.2 K/mm3 (0.0-0.4); Eosinophils % 1.8 % (0.1-12.0); Hematocrit 43.3 % (42.0-52.0); Hemoglobin 14.3 g/dL (14.1-18.0); Lymphocytes # 0.6 K/mm3 (0.7-4.5); Lymphocytes % 4.6 % (10-50); Mean Corpuscular HGB Conc 33.1 g/dL (31.8-35.4); Mean Corpuscular Volume 93.7 fl (80-94); Mean Platelet Volume 9.4 fl (7.4-10.4); Monocytes # 0.7 K/mm3 (0.1-1.0); Monocytes % 5.3 % (1.7-9.3); Neutrophils # 10.9 K/mm3 (1.8-7.8); Neutrophils % 87.1 % (37.0-80.0); Platelet Count 185 K/mm3 (142-424); Red Blood Count 4.62 M/mm3 (4.60-6.20); Red Cell Distribution Width 14.8 % (11.5-17.5); White Blood Count 12.5 K/mm3 (4.8-10.8)
--- NOTE | 2021-11-17 11:52 | PC.NURSE ---
Rn in room
[2021-11-17 11:56] LABS: Chloride 100 mmol/L (98-107); MANUAL DIFFERENTIAL MANUAL DIFFERENTIAL (MANUAL DIFF); Sodium 132 mmol/L (136-145)
[2021-11-17 11:57] LABS: Amorphous Sediment,Urine 2+ /lpf; Bacteria,Urine 1+ /lpf; Squamous Epithelial Cell,Urine Occasional #/hpf (0-5)
[2021-11-17 11:59] LABS: Alanine Aminotransferase 17 U/L (12-78); Albumin Level 3.9 g/dl (3.5-5.0); Albumin/Globulin Ratio 1.3 (1.1-1.8); Alkaline Phosphatase 84 U/L (38-126); Anion Gap 16.1 mEq/L (5-15); Aspartate Amino Transferase 42 U/L (17-59); Blood Urea Nitrogen 50 mg/dl (9-20); Carbon Dioxide 21 mmol/L (22.0-30.0); Creatinine Clearance Estimated 15 mL/min (50-200); Estimated Glomerular Filt Rate 12 ml/min (>60); GFR (African American) 15 ML/MIN (>60); Globulin 3.1 g/dL (1.3-3.2); Potassium 5.1 mmoL/L (3.5-5.1)
[2021-11-17 12:00] LABS: Glucose 113 mg/dl (74-100)
--- NOTE | 2021-11-17 12:00 | PC.NURSE ---
CATH IRRIGATED WITH 120CC STERILE WATER WITH CLEAR URINE RETURN
--- NOTE | 2021-11-17 12:18 | ECG_ITS ---
APPROVED REPORT Exam: Resting ECG HR:54 bpm ECG Measurements Heart Rate 54 AXES CO 160 P 48 QRSd 113 QRS -10 QT 445 T 30 QTc 431 Conclusion SINUS BRADYCARDIA MODERATE INTRAVENTRICULAR CONDUCTION DELAY [110+ ms QRS DURATION] BORDERLINE ECG UNCONFIRMED REPORT Electronically signed by : August Phelps MD 11/20/2021 10:15:11
--- NOTE | 2021-11-17 12:47 | P.CONPHA_ITS ---
[facility] Pharmacy VTE Monitoring - Patient Demographics Admission date: 11/17/21 Report Date: 11/17/21 Time: 12:47 Allergies/Adverse Reactions: Patient Allergies Penicillins Allergy (Unknown, Verified 11/15/21 15:02) Unknown allergy reaction Height: 1.75 m Weight: 74.843 kg Patient Problems: Current Active Problems Acute kidney injury (Acute) Hematuria (Acute) Urinary retention (Acute) - VTE Risk Labs: VTE Related Lab Results Hgb 14.3 g/dL (14.1-18.0) 11/17/21 11:45 Hct 43.3 % (42.0-52.0) 11/17/21 11:45 Plt Count 185 K/mm3 (142-424) 11/17/21 11:45 BUN 50 mg/dl (9-20) H 11/17/21 11:45 Creatinine 4.70 mg/dl (0.66-1.25) H 11/17/21 11:45 Estimated Creat Clear 15 mL/min (50-200) 11/17/21 11:45 Was VTE Risk Assessment Performed: No Clinical Trial Participant: No - Prophylaxis VTE Prophylaxis Ordered?: Yes Types of VTE Prophylaxis: TEDS Knee High Location of Applied Device: Bilateral Lower Extremeties
--- NOTE | 2021-11-17 12:51 | PC.NURSE ---
ATTEMPTED TO CALL REPORT
--- NOTE | 2021-11-17 13:31 | PC.NURSE ---
REPORT CALLED TO FLOOR
[2021-11-17 14:06] LABS: Coronavirus 19, PCR Not Detected (NotDetected); Influenza A, PCR Not Detected (NotDetected); Influenza B, PCR Not Detected (NotDetected)
[2021-11-17 14:09] LABS: Lymphocytes % 11 % (10-50); Monocytes % 1 % (2-9); Neutrophils % 88 % (42-76); Platelet Estimate Normal; RBC Morphology Normal; Total Cells Counted 100
--- NOTE | 2021-11-17 14:21 | PC.NURSE ---
pt waiting to go upstairs to room
--- NOTE | 2021-11-17 14:28 | HMH.PHAINT ---
MEDICATION RECONCILIATION COMPLETE USING FILL HISTORY AND RECENT DISCHARGE LIST FROM [facility]. PATIENT WAS RECENTLY DISCHARGED FROM [facility] FOLLOWING TURP WHERE HIS ONLY MEDICATION WAS DISCONTINUED ON DISCHARGE.
[2021-11-18 04:00] VITALS: BP 132/77; PULSE 69; RESP 14; TEMP 36.7; O2SAT 97
[2021-11-18 04:39] VITALS: BMI 24.0
--- NOTE | 2021-11-18 04:57 | PC.NURSE ---
pt has rested well this shift, no complaints of pain, remains on room air, catheter in place, 2900 mL out so far this shift
[2021-11-18 07:22] LABS: Chloride 106 mmol/L (98-107)
[2021-11-18 07:23] LABS: Albumin Level 3.2 g/dl (3.5-5.0); Potassium 4.5 mmoL/L (3.5-5.1); Sodium 139 mmol/L (136-145)
[2021-11-18 07:25] LABS: Blood Urea Nitrogen 33 mg/dl (9-20); Creatinine Clearance Estimated 40 mL/min (50-200); Estimated Glomerular Filt Rate 40 ml/min (>60); GFR (African American) 48 ML/MIN (>60)
[2021-11-18 07:26] LABS: Anion Gap 10.5 mEq/L (5-15); Calcium 8.7 mg/dl (8.4-10.2); Carbon Dioxide 27 mmol/L (22.0-30.0); Glucose 110 mg/dl (74-100); Phosphorous 3.5 mg/dl (2.5-4.5)
[2021-11-18 08:00] VITALS: BP 123/62; PULSE 71; RESP 16; TEMP 36.5; O2SAT 97
--- NOTE | 2021-11-18 08:41 | HMH.HP ---
*Admission Date: 11/17/21 <Anne Rain 11/18/21 08:47> *Chief complaint: Unable to void <Anne Rain 11/18/21 08:47> *History of present illness: Mr. Valdez is a 76-year-old male who has been followed by urology after having a TURP on 11/11/2021. He had a follow-up visit with Dr. Womack in his office on 11/15/2021 at which time his Hill catheter was removed. He was able to void prior to leaving the office. Since being home on Thursday he has not been able to void at all. He has been eating and drinking as usual and denies nausea and vomiting. He denies fever and his bowels have been moving. Thus he presented to the emergency room for evaluation.White blood cell count was found to be elevated at 12,500 With a hemoglobin of 14.3 and hematocrit of 43.3. Sodium was low at 132 and potassium of 5.1. BUN was 50 and creatinine was 4.7.Received a liter of IV fluids. He also has some Tylenol. Hill catheter was inserted and liter of urine was obtained. This a.m. patient is anxious to see the urologist. He slept at intervals. He remains n.p.o. lab work shows normal electrolytes with improvement in his kidney function with a BUN of 33 and a creatinine of 1.7. He is receiving lactated Ringer's at 75 an hour. <Anne Rain 11/18/21 08:47> [facility] History Medical History: Denies:: Cancer, Diabetes Mellitus Type 1, Diabetes Mellitus Type 2, Internal Pacemaker, MRSA, Seizures <Anne Rain 11/18/21 08:47> *Have you ever received a pneumonia vaccine?: No <Anne Rain 11/18/21 08:47> *Have you received a flu vaccine this season?: No <Anne Rain 11/18/21 08:47> Other Medical History: Denies: Blood Transfusion Reaction <Anne Rain 11/18/21 08:47> Comment:: BPH <Anne Rain 11/18/21 08:52> Other Surgeries: Yes: Hernia Repair, Other (turp). No: Pacemaker <Anne Rain 11/18/22 08:47> Amputation: No <RainAnne 11/18/21 08:47> Fractures: No <KoffiAnne 11/18/21 08:47> Comment: TURP 11/11/[address] Womack <KoffiAnne 11/18/21 08:52> - *Social History Last grade of school completed: High school graduate <Rain,Anne 11/18/21 08:47> Smoking Status: Never smoker <RainAnne 11/18/21 08:47> Alcohol Intake: never <RainAnne 11/18/21 08:47> Substance Use Type: denies use <Rain,Anne 11/18/21 08:47> *Occupational Status:: retired <Rain,Anne 11/18/21 08:47> Housing: house <RainAnne 11/18/21 08:47> Household Members: spouse <Rain,Anne 11/18/21 08:47> *Travel in the last 8 weeks: None <RainAnne 11/18/21 08:47> Family Hx:: No significant family history <RainAnne 11/18/21 08:47> Review of Systems - Constitutional Denies fever(s) <KoffiAnne 11/18/21 08:52> - Eyes Denies change in vision <KoffiAnne 11/18/21 08:52> - ENT Denies ear pain, Denies sore throat <KoffiAnne 11/18/21 08:52> - *Cardiovascular Denies chest pain, Denies shortness of breath <KoffiAnne 11/18/21 08:52> - *Respiratory Denies cough, Denies shortness of breath <KoffiAnne 11/18/21 08:52> - *Gastrointestinal Reports abdominal pain, Denies constipation, Denies heartburn, Denies nausea, Denies vomiting <Anne Rain 11/18/21 08:52> - *Genitourinary Reports difficulty urinating <Anne Rain 11/18/21 08:52> - *Musculoskeletal Denies abnormal walking <Anne Rain - 11/18/21 08:52> - *Neurologic Denies abnormal walking, Denies seizure-like activity, Denies dizziness, Denies headache(s) <Anne Rain - 11/18/21 08:52> Meds Home Medications Medication Instructions Recorded Confirmed Type No Known Home Medications 11/17/21 11/17/21 History <Luis Borges - 11/18/21 09:28> Allergies Allergy/AdvReac Type Severity Reaction Status Date / Time Penicillins Allergy Unknown Unknown Verified 11/15/21 15:02 allergy reaction <Luis Borges - 11/18/21 09:28> Exam Vital signs and
--- NOTE | 2021-11-18 16:41 | HMH.CONS ---
*Admission Date: 11/17/21 *Reason for consult:: Urinary retention *History of present illness: Patient is a 76-year-old white male who is well-known to me. He underwent a TURP on November 11. His Hill catheter was removed last Thursday and he was able to void in the office as it is bladder was primed with saline prior to removing the catheter. Patient states he went home and was only barely dribble out and return to the emergency room on early Thursday morning. His white count was 12.5 and his creatinine was 4.7. Catheter was placed but no residual was noted. No significant clots were noted. Patient's urine in his Hill bag at the bedside today is clear. 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 [facility] History Medical History: Denies:: Cancer, Diabetes Mellitus Type 1, Diabetes Mellitus Type 2, Internal Pacemaker, MRSA, Seizures *Have you ever received a pneumonia vaccine?: No *Have you received a flu vaccine this season?: No Other Medical History: Denies: Blood Transfusion Reaction Other Surgeries: Yes: Hernia Repair, Other (turp). No: Pacemaker Amputation: No Fractures: No - *Social History Last grade of school completed: High school graduate Smoking Status: Never smoker Alcohol Intake: never Substance Use Type: denies use *Occupational Status:: retired Housing: house Household Members: spouse *Travel in the last 8 weeks: None Family Hx:: No significant family history Review of Systems - Review of Systems Review of systems:: pertinent systems reviewed and negative unless documented below - *Neurologic Denies abnormal walking, Denies seizure-like activity, Denies dizziness, Denies headache(s) Meds Home Medications Medication Instructions Recorded Confirmed Type No Known Home Medications 11/17/21 11/17/21 History Allergies Allergy/AdvReac Type Severity Reaction Status Date / Time Penicillins Allergy Unknown Unknown Verified 11/15/21 15:02 allergy reaction Exam Vital signs and Labs for Last 24 Hours: Temp Pulse Resp BP Pulse Ox 97.7 F 71 16 123/62 97 11/18/21 08:00 11/18/21 08:00 11/18/21 08:00 11/18/21 08:00 11/18/21 08:00 Laboratory Results - last 24 hr 11/18/21 06:35: Sodium 139, Potassium 4.5, Chloride 106, Carbon Dioxide 27, Anion Gap 10.5, BUN 33 H D, Creatinine 1.70 H D, Estimated Creat Clear 40, Estimated GFR 40 L, Est GFR ( Amer) 48 L D, Glucose 110 H, Calcium 8.7, Phosphorus 3.5, Albumin 3.2 L D I & O for Last 24 hours: Intake & Output 11/15/21 11/16/21 11/17/21 11/18/21 23:59 23:59 23:59 23:59 Intake Total 360 / 360 1030 / 1030 Output Total 1200 / 2100 1700 / 1700 Balance -840 / -1740 -670 / -670 Weight 75.807 kg 73.482 kg Microbiology Reports for the Last 24 Hours: Microbiology 11/17/21 11:30 Urine,Catheterized Urine Culture - Preliminary NO GROWTH AFTER 24 HOURS - Constitutional no acute distress - *Routine HEENT Exam Head: Present: normocephalic Eye: Present: EOMI, PERRL ENT: Present: mucous membranes moist - *Routine Neck Exam Present: supple. Absent: lymphadenopathy - *Routine Respiratory Exam Absent: accessory muscle use - *Routine Cardiovascular Exam Absent: JVD - *Routine Abdominal Exam Present: soft. Absent: tenderness - *Routine Extremities Exam Absent: cyanosis, clubbing, edema - *Routine Skin Exam Present: warm. Absent: rash - *Routine Neurological Exam Present: alert, oriented X3 Internal Medicine - CN: Reslt - Labs CBC & Chem 7: 11/17/21 11:45 11/18/21 06:35 Labs: BMP 11/18/21 06:35 Sodium 139 Potassium 4.5 Chloride 106 Carbon Dioxide 27 BUN 33 H D Creatinine 1.70 H D Glucose 110 H Calcium 8.7 Liver Function 11/18/21 Range/Units 06:35 Albumin 3.2 L D (3.5-5.0) g/dl Assessment and P
--- NOTE | 2021-11-18 22:20 | HMH.DCSUM ---
General - General Admission date:: 11/17/21 Discharge date: 11/18/21 HPI HPI: Mr. Richardson is a 76-year-old male who has been followed by urology after having a TURP on 11/11/2021. He had a follow-up visit with Dr. Womack in his office on 11/15/2021 at which time his Hill catheter was removed. He was able to void prior to leaving the office. Since being home on Thursday he has not been able to void at all. He has been eating and drinking as usual and denies nausea and vomiting. He denies fever and his bowels have been moving. Thus he presented to the emergency room for evaluation.White blood cell count was found to be elevated at 12,500 With a hemoglobin of 14.3 and hematocrit of 43.3. Sodium was low at 132 and potassium of 5.1. BUN was 50 and creatinine was 4.7.Received a liter of IV fluids. He also has some Tylenol. Hill catheter was inserted and liter of urine was obtained. This a.m. patient is anxious to see the urologist. He slept at intervals. He remains n.p.o. lab work shows normal electrolytes with improvement in his kidney function with a BUN of 33 and a creatinine of 1.7. He is receiving lactated Ringer's at 75 an hour. Hospital Course Hospital Course: Urology was consulted and the patient was seen by Dr. Womack. Dr. Womack recommended bladder retraining and the patient was to plug his Hill catheter for 5 to 6 hours during the day to allow his bladder to fill out. When he begins having pressure or if its been 5 to 6 hours, he will place the catheter back to drainage. This should be done on a daily basis and he will follow-up with the patient in 1 week for repeat voiding trial. He was stable to be discharged. Objective Vital signs: Temp Pulse Resp BP Pulse Ox 97.7 F 71 16 123/62 97 11/18/21 08:00 11/18/21 08:00 11/18/21 08:00 11/18/21 08:00 11/18/21 08:00 Narrative: - Constitutional no acute distress <Anne Rain - 11/18/21 08:52> Comments: Lying comfortably in the bed. He has a Hill catheter to bedside drainage. <Anne Rain 11/18/21 08:52> - *Routine HEENT Exam Head: Present: normocephalic, atraumatic <Anne Rain 11/18/21 08:52> Eye: Present: PERRL. Absent: conjunctival icterus, scleral injection <Anne Rain 11/18/21 08:52> ENT: Present: mucous membranes moist, oropharynx clear <Anne Rain 11/18/21 08:52> - *Routine Neck Exam Present: supple. Absent: carotid bruit, lymphadenopathy, thyromegaly <Anne Rain 11/18/21 08:52> - *Routine Respiratory Exam Present: CTA bilaterally (Anteriorly and posteriorly) <Anne Rain 11/18/21 08:52> - *Routine Cardiovascular Exam Present: RRR <[facility] 11/18/21 08:52> - *Routine Abdominal Exam Present: soft, normoactive bowel sounds. Absent: tenderness, distended <Anne Rain 11/18/21 08:52> - *Routine Rectal Exam Rectal:: deferred <Anne Rain 11/18/21 08:52> - *Routine Genitalia Exam Genitalia:: deferred <[facility] 11/18/21 08:52> - *Routine Extremities Exam Present: pulses intact. Absent: edema, calf tenderness <[facility] 11/18/21 08:52> - *Routine Neurological Exam Present: alert, oriented X3 Results Labs on day of discharge: Labs from last 24 hours 11/18/21 06:35 Sodium 139 Potassium 4.5 Chloride 106 Carbon Dioxide 27 Anion Gap 10.5 BUN 33 H D Creatinine 1.70 H D Estimated Creat Clear 40 Estimated GFR 40 L Est GFR ( Amer) 48 L D Glucose 110 H Calcium 8.7 Phosphorus 3.5 Albumin 3.2 L D Preliminary micro results at discharge 11/17/21 11:30 Urine Culture - Preliminary Urine,Catheterized NO GROWTH AFTER 24 HOURS DS: Diagnosis - Discharge Diagnosis (1) Acute kidney injury Status: Acute (2) Obstructive uropathy Status: Acute Problem details: Patient doing well on postop day 1 after TURP. His urine remained slightly blood-tinged off of CBI and after ambulating in the halls. He was
--- NOTE | 2021-11-19 15:09 | CARE MANAGER ---
CM called and spoke with patient's to discuss post discharge status. Per spouse, patient is doing well, continues to have discomfort r/t indwelling frazier catheter. He has been clamping it to retrain his bladder. No known needs at this time.
== END 2021-11-18 17:15 | disposition home or self-care (01) ==
LOC: ER 12:24 → 2ND 11-18 00:46
PROVIDERS: Admitting Provider Family Medicine; Emergency Provider Student in an Organized Health Care Education/Training Program; PCP Family Medicine; Visit Provider Family Medicine
DX: N17.9 Acute kidney failure, unspecified (principal); N13.9 Obstructive and reflux uropathy, unspecified; R33.8 Other retention of urine; Z20.822 Contact with and (suspected) exposure to COVID-19
CPT/HCPCS: G0378; 36415; 80053; 80069; 81001; 85007; 85025; 87086; 93005; 96365; 96375; 99285; C9803; U0003; U0005

== ENCOUNTER 2021-11-20 06:44 | Emergency (ER) | payer MEDICARE, SELFPAY ==
[2021-11-20 07:06] VITALS: BMI 27.3
[2021-11-20 07:28] VITALS: BP 128/70; PULSE 70; RESP 16; TEMP 36.8; O2SAT 98
== END 2021-11-20 07:29 | disposition home or self-care (01) ==
LOC: ER 06:52
PROVIDERS: Emergency Provider Emergency Medicine; PCP Family Medicine
DX: T83.9XXA Unspecified complication of genitourinary prosthetic device, implant and graft, initial encounter (principal)
CPT/HCPCS: 51702; 99281

== ENCOUNTER → 2022-03-13 16:33 | Outpatient (CLI) | payer MEDICARE, SELFPAY | PROVIDERS: Visit Provider Urology | DX: N40.1 Benign prostatic hyperplasia with lower urinary tract symptoms (principal); B96.29 Other Escherichia coli [E. coli] as the cause of diseases classified elsewhere | CPT/HCPCS: 87086; 87088; 87186 ==

== ENCOUNTER 2024-11-14 11:47 | Outpatient (CLI) | payer MEDICARE, SELFPAY ==
[2024-11-14 15:03] LABS: Basophils # 0.1 K/mm3 (0-0.2); Basophils % 1.1 % (0.1-2.0); Eosinophils # 0.1 K/mm3 (0.0-0.4); Eosinophils % 2.8 % (0.1-12.0); Hematocrit 43.8 % (42.0-52.0); Hemoglobin 14.7 g/dL (14.1-18.0); Lymphocytes # 0.9 K/mm3 (0.7-4.5); Lymphocytes % 19.7 % (10-50); Mean Corpuscular HGB Conc 33.6 g/dL (31.8-35.4); Mean Corpuscular Hemoglobin 30.1 pg (27.0-31.2); Mean Corpuscular Volume 89.8 fl (80-94); Mean Platelet Volume 11.8 fl (7.4-10.4); Monocytes # 0.4 K/mm3 (0.1-1.0); Monocytes % 8.7 % (1.7-9.3); Neutrophils # 3.1 K/mm3 (1.8-7.8); Neutrophils % 67.3 % (37.0-80.0); Nucleated Red Blood Cells # 0 10^3/uL; Nucleated Red Blood Cells % 0 %; Platelet Count 165 K/mm3 (142-424); Red Blood Count 4.88 M/mm3 (4.60-6.20); Red Cell Distribution Width-SD 45.9 fL; White Blood Count 4.6 K/mm3 (4.8-10.8)
[2024-11-14 17:25] LABS: Alanine Aminotransferase 18 U/L (12-78); Albumin Level 4.2 g/dl (3.5-5.0); Albumin/Globulin Ratio 1.5 (1.1-1.8); Alkaline Phosphatase 95 U/L (38-126); Aspartate Amino Transferase 31 U/L (17-59); Bilirubin,Total 0.8 mg/dl (0.2-1.3); Blood Urea Nitrogen 17 mg/dl (9-20); Calcium 9.2 mg/dl (8.4-10.2); Carbon Dioxide 25 mmol/L (22.0-30.0); Chloride 105 mmol/L (98-107); Chol/HDL Ratio 5.6 (1-3.5); Cholesterol 218 mg/dl (140-200); Estimated Glomerular Filt Rate 65 ml/min (>60); GFR (African American) 79 ML/MIN (>60); Globulin 2.8 g/dL (1.3-3.2); Glucose 92 mg/dl (74-100); HDL Cholesterol 39 mg/dl (40-60); Magnesium 2.1 mg/dl (1.6-2.3); Sodium 141 mmol/L (136-145); Triglycerides 113 mg/dl (30-150); VLDL Cholesterol 23 mg/dL (0-40)
[2024-11-14 17:36] LABS: Direct LDL Cholesterol 146.48 mg/dL (100-129)
[2024-11-14 17:59] LABS: Prostate Specific Ag, Diagnost 4.76 ng/ml (0.0-4.0); Thyroid Stimulating Hormone 1.41 uIU/mL (0.465-4.68)
[2024-11-14 18:18] LABS: Vitamin B12 571 pg/mL (239-931)
[2024-11-14 19:51] LABS: Ferritin 184 ng/ml (17.9-464)
== END 2024-11-14 23:59 | disposition home or self-care (01) ==
LOC: LAB.DROPOF 11-15 15:05
PROVIDERS: PCP Nurse Practitioner Family; Visit Provider Nurse Practitioner Family
DX: R97.20 Elevated prostate specific antigen [PSA] (principal); Z13.220 Encounter for screening for lipoid disorders; Z13.0 Encounter for screening for diseases of the blood and blood-forming organs and certain disorders involving the immune mechanism; R03.0 Elevated blood-pressure reading, without diagnosis of hypertension; Z13.29 Encounter for screening for other suspected endocrine disorder; R73.9 Hyperglycemia, unspecified
CPT/HCPCS: 80053; 80061; 82607; 82728; 83036; 83735; 84153; 84443; 85025

== ENCOUNTER 2024-11-18 07:59 | Outpatient (CLI) | payer MEDICARE, SELFPAY ==
--- NOTE | 2024-11-18 08:00 | CA_ITS ---
FINAL REPORT TECHNIQUE: Real-time imaging was performed of the extracranial carotid arteries in transverse and longitudinal planes with color duplex evaluation of blood flow velocity. Spectral analysis was performed. The cervicovertebral arteries were also examined. Stenosis evaluation based on elevated velocity criteria. CLINICAL HISTORY: SCREENING, NO MEDS FINDINGS: FINDINGS: RIGHT CAROTID: CCA PSV: 52 cm/sec ICA PSV: 85 cm/sec ECA PSV: 61 cm/sec ICA/CCA systolic flow velocity ratio: 1.9 Minimal atherosclerotic plaque is noted. Narrowing is classified in the less than 50% category. LEFT CAROTID: CCA PSV: 116 cm/sec ICA PSV: 99 cm/sec ECA PSV: 64 cm/sec ICA/CCA systolic flow velocity ratio: 1.7 Minimal atherosclerotic plaque is noted. Narrowing is classified in the less than 50% category. VERTEBRALS: Vertebral arteries are patent with antegrade flow and expected spectral waveforms. Incidental finding of 6 mm hypoechoic focus in the left thyroid lobe. IMPRESSION: No hemodynamically significant carotid artery stenosis. Patent vertebral arteries. Hypoechoic focus in the left thyroid lobe. Consider thyroid ultrasound for further characterization. Reviewed, Interpreted and Dictated by Jere Gtz MD Transcribed by Caroline Contreras Authenticated and [facility]
== END 2024-11-18 23:59 | disposition home or self-care (01) ==
LOC: RT 08:00
PROVIDERS: PCP Nurse Practitioner Family; Visit Provider Nurse Practitioner Family
DX: R93.89 Abnormal findings on diagnostic imaging of other specified body structures (principal); Z13.6 Encounter for screening for cardiovascular disorders
CPT/HCPCS: 93880

== ENCOUNTER 2024-11-24 09:10 | Outpatient (CLI) | payer MEDICARE, SELFPAY ==
--- NOTE | 2024-11-24 09:30 | US_ITS ---
FINAL REPORT TECHNIQUE: Sonographic images of the thyroid gland were obtained in the longitudinal and transverse planes. CLINICAL HISTORY: NODULE seen on carotid scan COMPARISON: None FINDINGS: The right lobe measures 1.3 x 4.3 x 1.6 cm. The right lobe is homogeneous. There is a mixed cystic and solid 6 mm nodule present in the right lobe, a TI-RADS category 3 nodule. A few other colloid cysts are noted in the right lobe. The left lobe measures 1.5 x 4.4 x 2.0 cm. The left lobe is mildly heterogeneous. There are multiple nodules present. There is a 13 mm mixed cystic and solid lower pole nodule with punctate calcifications, a TI-RADS category 4 nodule. There is a small cystic and solid nodule in the upper pole, measuring 7 mm in size. The isthmus measures 5 mm. This is normal. IMPRESSION: 1. TIRADS category 4 nodule in the left lobe. Recommend 6 to 12-month follow-up thyroid ultrasound. Reviewed, Interpreted and Dictated by Ana Holbrook MD Transcribed by Olga Alvarado Authenticated and . [facility]
== END 2024-11-24 23:59 | disposition home or self-care (01) ==
LOC: RAD 09:11
PROVIDERS: PCP Nurse Practitioner Family; Visit Provider Nurse Practitioner Family
DX: R94.6 Abnormal results of thyroid function studies (principal)
CPT/HCPCS: 76536